=== PATIENT | female | born 1945 | race Caucasian/White ===

== ENCOUNTER → 2018-03-24 16:45 | Outpatient (CLI) | payer OTHER, SELFPAY ==
--- NOTE | 2018-03-24 16:55 | DI.RAD.S_ITS ---
PROCEDURE: XR SHOULDER LT MIN 2V INDICATIONS: mikki pain hx brest cancer TECHNIQUE: 3 views of the shoulder were acquired. COMPARISON: [facility], , CHEST 2 VIEW, 09/16/2016, 16:13. FINDINGS: Bones: No fractures or dislocations. No suspicious bony lesions. Visualized ribs appear intact. 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 Soft tissues: No suspicious soft tissue calcifications. Several surgical clips left axilla. IMPRESSION: No osteolytic or blastic bone lesions seen. No underlying chest wall or lung lesion found. Surgical clips indicating prior left breast carcinoma surgery as noted above. Dictated by: Mo Asher M.D. on 03/25/2018 at 9:04 Approved by: Mo Asher M.D. on 03/25/2018 at 9:05
--- NOTE | 2018-03-24 16:55 | DI.RAD.S_ITS ---
PROCEDURE: XR FEMUR RT MIN 2V INDICATIONS: mikki pain hx brest cancer TECHNIQUE: 4 views of the femur were acquired. COMPARISON: None. FINDINGS: Bones: No fractures or dislocations. No suspicious bony lesions. Soft tissues: No suspicious soft tissue calcifications or masses. IMPRESSION: No osteolytic or blastic bone lesions. Dictated by: Mo Asher M.D. on 03/25/2018 at 9:02 Approved by: Mo Asher M.D. on 03/25/2018 at 9:03
== END ==
PROVIDERS: Family Provider Family Medicine; PCP Family Medicine; Visit Provider Family Medicine
DX: M89.8X9 Other specified disorders of bone, unspecified site (principal); Z85.3 Personal history of malignant neoplasm of breast
CPT/HCPCS: 73030; 73552

== ENCOUNTER → 2018-04-03 10:23 | Outpatient (CLI) | payer OTHER, SELFPAY ==
--- NOTE | 2018-04-03 10:25 | DI.MG.S_ITS ---
UNILATERAL LEFT DIGITAL DIAGNOSTIC MAMMOGRAM 3D/2D POST LUMPECTOMY: 04/03/2018 CLINICAL: Personal history of breast cancer. Comparison is made to exams dated: 07/28/2017 mammogram, 10/01/2016 [facility], 07/31/2016 [facility], [facility]. The tissue of the left breast is heterogeneously dense. This may lower the sensitivity of mammography. There are post operative findings in the left breast. No significant masses, calcifications, or other findings are seen in the breast. There has been no significant interval change. IMPRESSION: NEGATIVE There is no mammographic evidence of malignancy. A 1 year screening mammogram is recommended. This exam was interpreted at Station ID: [id number]. NOTE: For mammograms, a report in lay terms will be sent to the patient. Approximately 15% of breast malignancies will not be visualized mammographically. In the management of a palpable breast mass, a negative mammogram must not discourage biopsy of a clinically suspicious lesion. Electronically Signed By: You grossman/ramin:04/03/2018 11:53:48 copy to: Raji Corona letter sent: Normal Exam ACR BI-RADS Category 1: Negative 3341F
== END ==
PROVIDERS: Family Provider Family Medicine; PCP Family Medicine; Visit Provider Surgery
DX: C50.912 Malignant neoplasm of unspecified site of left female breast (principal); M85.851 Other specified disorders of bone density and structure, right thigh; Z78.0 Asymptomatic menopausal state; Z87.891 Personal history of nicotine dependence; Z90.722 Acquired absence of ovaries, bilateral
CPT/HCPCS: 77065; 77080; G0279

== ENCOUNTER → 2018-05-13 11:15 | Outpatient (CLI) | payer OTHER, SELFPAY ==
[2018-05-13 12:19] LABS: Add Manual Diff / Slide Review NO; Basophils Percent Auto 0.5 % (0-2); Eosinophils Percent Auto 1.3 % (2-4); Hematocrit 44.1 % (36-46); Hemoglobin 14.7 g/dL (12.0-16.0); Lymphocytes Percent Auto 12.6 % (25-40); Mean Corpuscular HGB Conc 33.3 % (30-36); Mean Corpuscular Hemoglobin 28.6 PG (26-34); Mean Corpuscular Volume 85.9 fL (80-100); Monocytes Percent Auto 7.5 % (3-14); Neutrophils Absolute Auto 4100 /uL (3000-5900); Neutrophils Percent Auto 78.1 % (50-75); Platelet Count 112 X10^3/uL (150-400); Red Blood Cell Count 5.14 X10^6/uL (4.0-5.2); White Blood Cell Count 5.3 X10^3/uL (4.5-11.0)
[2018-05-13 12:30] LABS: Alanine Aminotransferase 35 IU/L (9-52); Albumin 4.8 g/dL (3.5-5.0); Albumin Globulin Ratio 1.8 (1.0-2.8); Alkaline Phosphatase 55 U/L (38-126); Aspartate Aminotransferase 31 IU/L (14-36); BUN Creatinine Ratio 21.7 (6-22); Bilirubin Total 0.7 mg/dL (0.2-1.3); Blood Urea Nitrogen 13 mg/dL (7-17); Carbon Dioxide 31 mmol/L (22-32); Chloride 98 mmol/L (98-107); Estimated Glomerular Filt Rate > 60.0 mL/min (>60); Globulin 2.7 g/dL (1.7-4.1); Glucose 120 mg/dL (80-110); HEMOLYSIS < 15 (0-50); Potassium 4.5 mmol/L (3.4-5.1); Sodium 140 mmol/L (137-145); Total Protein 7.5 g/dL (6.3-8.2)
[2018-05-14 15:36] LABS: Cancer Antigen 27.29 27 U/mL (< 38)
== END ==
PROVIDERS: PCP Family Medicine; Visit Provider Nurse Practitioner Gerontology
DX: C50.412 Malignant neoplasm of upper-outer quadrant of left female breast (principal)
CPT/HCPCS: 36415; 80053; 85025; 86300

== ENCOUNTER 2018-06-01 14:29 | Oncology outpatient (ONC) | payer OTHER, SELFPAY ==
[2018-06-01 15:21] VITALS: BP 142/88; PULSE 85; RESP 16; TEMP 36.5; O2SAT 100
--- NOTE | 2018-06-01 16:42 | P.PNONC_ITS ---
PN -Subjective Interval history: Renetta Fung is a very pleasant 72-year-old woman, who initially presented with screen detected left breast invasive lobular carcinoma in 07/2016. Biopsy of left breast 3 o'clock calcification area showed invasive lobular carcinoma classic type, intermediate grade, associated with LCIS, pleomorphic and classic types, with associated comedo necrosis and microcalcifications. The invasive carcinoma was strongly (>95%) ER positive, TX negative, her 2-. She underwent left partial mastectomy/SLN biopsy by Dr. Dumont on 10/01/2016. Pathology showed invasive lobular carcinoma, 12 mm in size, unifocal, with extensive LCIS, with areas of comedo necrosis. Margins were negative. Axillary SLN was negative. Adjuvant chemotherapy was not indicated. She completed adjuvant radiotherapy in mid December 2016. She initially took anastrozole for few weeks but had excessive musculoskeletal pain. She switched to letrozole at that point which she has continued. She says initially letrozole was quite easy year, but more recently, she has had increased pain and has been taking Celebrex at nighttime. She is also switch letrozole to nighttime. She has been using medicinal marijuana for pain. With these measures, the pain has improved but is still uncomfortable. In talking more about her medications, it turns out that she has also been taking raloxifene all along. I informed her that she should stop raloxifene and just continue with letrozole. I anticipate that her pain with further improved by stopping raloxifene. DEXA scan 04/03/2018 shows osteopenia, T-score -0.4 at lumbar spine, -1.8 at left femoral neck, -2.3 at right femoral neck (-1.4,-1.5, -2.4 respectively in 12/2016). - Patient Self-Reported Symptoms SR ears, nose, mouth, throat issues: Ears ringing SR Skin issues: Nail changes SR Genitourinary issues: Sexual difficulties SR Musculoskeletal issues: Joint pain or swelling, Bone pain Home Medications and Allergies Home Medications Medication Instructions Recorded Confirmed Type COENZYME Q10/VITAMIN E (CO-Q-10 1 sgl PO Q DAY #0 03/15/11 03/24/18 History 100mg) MULTIVITAMIN (One Daily 1 tab PO Q DAY #0 03/15/11 03/24/18 History Multivitamin) [VITAMIN E] 180 mg PO Q DAY #0 03/15/11 03/24/18 History [FLAX OIL] 1,000 mg PO QDAY #0 08/21/16 03/24/18 History losartan-hydrochlorothiazide 1 tab PO QDAY #90 tab 08/05/17 03/24/18 Rx potassium chloride [Klor-Con M20] 20 meq PO QDAY #90 tab 08/06/17 03/24/18 Rx celecoxib [Celebrex] 200 mg PO QDAY #0 11/28/17 03/24/18 History amlodipine 5 mg tablet 5 mg PO QDAY #90 tab 03/24/18 Rx omeprazole 20 mg capsule,delayed 20 mg PO QDAY #90 cap 03/24/18 Rx release raloxifene 60 mg tablet 60 mg PO QDAY #90 tab 03/24/18 Rx letrozole 2.5 mg tablet 2.5 mg PO DAILY #90 tab 04/27/18 Rx Allergies Allergy/AdvReac Type Severity Reaction Status Date / Time No Known Drug Allergies Allergy Verified 03/24/18 16:17 Exam Vital signs: Last Vital Signs Temp 97.7 F 06/01/18 15:21 Pulse 85 06/01/18 15:21 Resp 16 06/01/18 15:21 BP 142/88 H 06/01/18 15:21 Pulse Ox 100 06/01/18 15:21 - Constitutional positive no acute distress - Routine HEENT Exam Head: Present: normocephalic, atraumatic Eye: Present: EOMI, PERRL - Routine Neck Exam Present: supple. Absent: lymphadenopathy - Routine Chest/Breast/Axilla Exam Comments: Breast exam deferred today, but no palpable axillary, cervical or supraclavicular adenopathy. - Routine Respiratory Exam Present: Clear to auscultation bilaterally - Routine Cardiovascular Exam Present: RRR - Routine Abdominal Exam Present: soft. Absent: mass Assessment and Plan (1) Breast cancer, left Current visit: No Status: Chronic Resected stage IA left breast invasive lobular carcinoma, remains clinically in ED. Continue letrozole 2.5 mg daily. Unilateral left mammogram on 04/03/2018 is negative. She is due for bilateral screening mammogram later this year. (2) Thrombocytopenia Current visit: Yes Status: Chronic She has had chronic mild thrombocytopenia, with otherwise normal CBC. Platelet count today is 112,000, which is higher than previous values. Dr. Muniz previously did not think bone marrow biopsy was necessary, with which I agree. 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 (3) Osteopenia Current visit: Yes Status: Chronic Osteopenia at bilateral hips. The patient was previously on raloxifene for this , but given that she is now on letrozole, we stopped the raloxifene. I recommend either Prolia every 6 months or Zometa every 6 months, given that she is on AI endocrine therapy. We will obtain insurance authorization and plan to provide either 1 at her next appointment in 3 months. She has a physically active person, walks 5 hr a week, and takes daily supplemental calcium and vitamin-D.
--- NOTE | 2018-06-02 13:47 | ONC.SCHED ---
Prolia-per [place] website it is not on the list that requires prior authorization. [id number]
== END 2018-06-02 12:00 ==
LOC: ONC 14:37
PROVIDERS: Family Provider Family Medicine; PCP Family Medicine; Visit Provider Internal Medicine Hematology & Oncology
DX: C50.812 Malignant neoplasm of overlapping sites of left female breast (principal); Z17.0 Estrogen receptor positive status [ER+]; Z79.811 Long term (current) use of aromatase inhibitors; Z79.810 Long term (current) use of selective estrogen receptor modulators (SERMs); D69.6 Thrombocytopenia, unspecified; M85.88 Other specified disorders of bone density and structure, other site
CPT/HCPCS: 99215

== ENCOUNTER → 2018-07-21 08:56 | Outpatient (CLI) | payer OTHER, SELFPAY ==
[2018-07-21 10:08] LABS: Add Manual Diff / Slide Review NO; Basophils Percent Auto 0.7 % (0-2); Eosinophils Percent Auto 3.5 % (2-4); Hemoglobin 14.2 g/dL (12.0-16.0); Lymphocytes Percent Auto 22.4 % (25-40); Mean Corpuscular Hemoglobin 28.2 PG (26-34); Mean Corpuscular Volume 85.5 fL (80-100); Monocytes Percent Auto 9.8 % (3-14); Neutrophils Absolute Auto 2700 /uL (3000-5900); Neutrophils Percent Auto 63.6 % (50-75); Platelet Count 102 X10^3/uL (150-400); Red Blood Cell Count 5.03 X10^6/uL (4.0-5.2); Red Cell Distribution Width 13.9 % (11.6-14.8); White Blood Cell Count 4.3 X10^3/uL (4.5-11.0)
[2018-07-21 10:46] LABS: Alanine Aminotransferase 30 IU/L (9-52); Albumin 4.7 g/dL (3.5-5.0); Albumin Globulin Ratio 1.6 (1.0-2.8); Alkaline Phosphatase 58 U/L (38-126); Aspartate Aminotransferase 33 IU/L (14-36); BUN Creatinine Ratio 18.6 (6-22); Bilirubin Total 0.6 mg/dL (0.2-1.3); Blood Urea Nitrogen 13 mg/dL (7-17); Calcium 9.6 mg/dL (8.4-10.2); Carbon Dioxide 29 mmol/L (22-32); Chloride 96 mmol/L (98-107); Estimated Glomerular Filt Rate > 60.0 mL/min (>60); Globulin 2.9 g/dL (1.7-4.1); Glucose 102 mg/dL (80-110); HEMOLYSIS < 15 (0-50); Potassium 4.2 mmol/L (3.4-5.1); Sodium 137 mmol/L (137-145); Total Protein 7.6 g/dL (6.3-8.2)
[2018-07-21 10:53] LABS: Cholesterol 227 mg/dL (140-199); HDL Cholesterol 90 mg/dL (40-60); LDL Cholesterol Calculated 125 mg/dL (<100); Triglycerides 62 mg/dL (35-150)
[2018-07-21 11:14] LABS: TSH w/ Reflex to FT4 2.52 uIU/mL (0.47-4.68)
== END ==
PROVIDERS: Family Provider Family Medicine; PCP Family Medicine; Visit Provider Internal Medicine Hematology & Oncology
DX: D69.6 Thrombocytopenia, unspecified (principal); I10 Essential (primary) hypertension
CPT/HCPCS: 36415; 80053; 80061; 84443; 85025

== ENCOUNTER → 2018-08-11 12:17 | Outpatient (CLI) | payer OTHER, SELFPAY ==
--- NOTE | 2018-08-11 | DI.MG.S_ITS ---
BILATERAL DIGITAL SCREENING MAMMOGRAM 3D/2D WITH CAD POST LUMPECTOMY: 08/11/2018 CLINICAL: Routine screening. Personal history of left breast cancer. Family history of breast cancer. Comparison is made to exams dated: 07/28/2017 mammogram, 07/23/2016 mammogram, and 07/20/2015 mammogram - [facility]. The tissue of both breasts is heterogeneously dense. This may lower the sensitivity of mammography. Current study was also evaluated with a Computer Aided Detection (CAD) system. There are benign post operative findings in the left breast. No significant masses, calcifications, or other findings are seen in either breast. There has been no significant interval change. IMPRESSION: There is no mammographic evidence of malignancy. A 1 year screening mammogram is recommended. This exam was interpreted at Station ID: [id number]. NOTE: For mammograms, a report in lay terms will be sent to the patient. Approximately 15% of breast malignancies will not be visualized mammographically. In the management of a palpable breast mass, a negative mammogram must not discourage biopsy of a clinically suspicious lesion. Electronically Signed By: Sebastien ventura/ramin:08/11/2018 20:00:01 copy to: Jessica Aldridge letter sent: Normal Exam ACR BI-RADS Category 2: Benign Finding(s) 3342F
== END ==
PROVIDERS: Family Provider Internal Medicine Hematology & Oncology; PCP Family Medicine; Referring Provider Surgery; Visit Provider Family Medicine
DX: Z12.31 Encounter for screening mammogram for malignant neoplasm of breast (principal); Z85.3 Personal history of malignant neoplasm of breast; Z80.3 Family history of malignant neoplasm of breast
CPT/HCPCS: 77063; 77067

== ENCOUNTER → 2018-09-28 08:39 | Outpatient (CLI) | payer OTHER, SELFPAY ==
--- NOTE | 2018-09-28 08:41 | DI.US.S_ITS ---
PROCEDURE: US THYROID INDICATIONS: Right neck assymmetry/mass TECHNIQUE: Real-time scanning was performed of the thyroid gland, with image documentation. COMPARISON: None. FINDINGS: Right: Thyroid lobe measures 3.9 x 1.1 x 1.2 cm, and is homogeneous in echotexture. Left: Thyroid lobe measures 4.2 x 1.1 x 1.2 cm, and is homogenous in echotexture. Isthmus: 1 mm thick. Nodule number: 1 Location: Left inferior Size: 0.5 x 0.3 x 0.4 cm. Composition: Solid Echogenicity: Hypoechoic Shape: wider than tall. Margins: Smooth Echogenic foci: None Total points: 4 ACR TI-RADS category: Moderately suspicious IMPRESSION: Moderately suspicious subcentimeter left thyroid nodule. Recommend continued followup ultrasound as detailed below. ACR TI-RADS definitions and recommendations: TI-RADS 1 (benign): 0 points. FNA not needed. TI-RADS 2 (not suspicious): 2 points. FNA not needed. TI-RADS 3 (mildly suspicious): 3 points. * FNA if 2.5 cm or larger, follow up if 1.5 cm or larger (at 1, 3, and 5 years). TI-RADS 4 (moderately suspicious): 4-6 points. * FNA if 1.5 cm or larger, follow up if 1 cm or larger (at 1, 2, 3, and 5 years). TI-RADS 5 (highly suspicious): 7 points or more. * FNA if 1 cm or larger, follow up if 0.5 cm or larger (every year for 5 years). Dictated by: Ming YOO Interpreted: Clifton Ascencio MD on 09/28/2018 at 10:24 Approved by: Clifton Ascencio M.D. on 09/28/2018 at 11:18
== END ==
PROVIDERS: PCP Family Medicine; Visit Provider Surgery
DX: E04.1 Nontoxic single thyroid nodule (principal); R22.1 Localized swelling, mass and lump, neck; C50.912 Malignant neoplasm of unspecified site of left female breast
CPT/HCPCS: 76536

== ENCOUNTER → 2019-02-08 14:58 | Outpatient (CLI) | payer OTHER, SELFPAY ==
[2019-02-08 15:08] LABS: Add Manual Diff / Slide Review NO; Basophils Absolute Auto 0 /uL (0-100); Basophils Percent Auto 0.3 % (0-2); Eosinophils Absolute Auto 100 /uL (0-450); Eosinophils Percent Auto 1.8 % (2-4); Lymphocytes Absolute Auto 900 /uL (1100-4500); Lymphocytes Percent Auto 15.6 % (25-40); Mean Corpuscular HGB Conc 33.3 % (30-36); Mean Corpuscular Hemoglobin 28.7 PG (26-34); Monocytes Absolute Auto 500 /uL (0-900); Monocytes Percent Auto 7.9 % (3-14); Neutrophils Absolute Auto 4300 /uL (1500-7000); Neutrophils Percent Auto 74.4 % (50-75); Platelet Count 109 X10^3/uL (150-400); Red Blood Cell Count 4.89 X10^6/uL (4.0-5.2); Red Cell Distribution Width 13.8 % (11.6-14.8); White Blood Cell Count 5.8 X10^3/uL (4.5-11.0)
[2019-02-08 15:27] LABS: Alanine Aminotransferase 24 IU/L (9-52); Albumin 4.6 g/dL (3.5-5.0); Albumin Globulin Ratio 1.8 (1.0-2.8); Alkaline Phosphatase 51 U/L (38-126); Aspartate Aminotransferase 26 IU/L (14-36); BUN Creatinine Ratio 18.6 (6-22); Bilirubin Total 0.8 mg/dL (0.2-1.3); Blood Urea Nitrogen 13 mg/dL (7-17); Calcium 9.7 mg/dL (8.4-10.2); Carbon Dioxide 30 mmol/L (22-32); Chloride 97 mmol/L (98-107); Estimated Glomerular Filt Rate > 60.0 mL/min (>60); Globulin 2.6 g/dL (1.7-4.1); Glucose 92 mg/dL (80-110); HEMOLYSIS < 15 (0-50); Lactate Dehydrogenase 467 U/L (313-618); Potassium 4.4 mmol/L (3.4-5.1); Sodium 135 mmol/L (137-145); Total Protein 7.2 g/dL (6.3-8.2)
[2019-02-10 13:53] LABS: Beta-2-Microglobulin 1.38 mg/L (< 2.52)
[2019-02-10 21:37] LABS: Albumin 4.3 g/dL (3.8-4.8); Alpha 1 Globulin 0.3 g/dL (0.2-0.3); Alpha 2 Globulin 0.6 g/dL (0.5-0.9); Beta 1 Globulin 0.4 g/dL (0.4-0.6); Gamma Globulin 0.8 g/dL (0.8-1.7); Protein, Total 6.7 g/dL (6.1-8.1)
[2019-02-11 10:11] LABS: Cancer Antigen 27.29 25 U/mL (< 38)
== END ==
PROVIDERS: PCP Family Medicine; Visit Provider Internal Medicine Hematology & Oncology
DX: C50.912 Malignant neoplasm of unspecified site of left female breast (principal)
CPT/HCPCS: 36415; 80053; 82232; 83615; 84155; 84165; 85025; 86300

== ENCOUNTER → 2019-06-03 16:11 | Outpatient (CLI) | payer OTHER, SELFPAY ==
--- NOTE | 2019-06-03 16:12 | DI.MG.S_ITS ---
BILATERAL DIGITAL SCREENING MAMMOGRAM 3D/2D WITH CAD: 06/03/2019 CLINICAL: Routine screening. Personal history of left breast cancer. Family history of breast cancer. Comparison is made to exams dated: 08/11/2018 mammogram, 07/28/2017 mammogram, and 07/23/2016 mammogram - [facility]. The tissue of both breasts is heterogeneously dense. This may lower the sensitivity of mammography. Current study was also evaluated with a Computer Aided Detection (CAD) system. There are benign post operative findings in the left breast. No significant masses, calcifications, or other findings are seen in either breast. There has been no significant interval change. IMPRESSION: There is no mammographic evidence of malignancy. A 1 year screening mammogram is recommended. This exam was interpreted at Station ID: [id number]. NOTE: For mammograms, a report in lay terms will be sent to the patient. Approximately 15% of breast malignancies will not be visualized mammographically. In the management of a palpable breast mass, a negative mammogram must not discourage biopsy of a clinically suspicious lesion. Electronically Signed By: Elzbieta crandall/ramin:06/04/2019 12:48:02 copy to: YVON ONEILL letter sent: Normal Exam ACR BI-RADS Category 2: Benign Finding(s) 3342F
== END ==
PROVIDERS: PCP Family Medicine
DX: Z12.31 Encounter for screening mammogram for malignant neoplasm of breast (principal); Z85.3 Personal history of malignant neoplasm of breast; Z80.3 Family history of malignant neoplasm of breast
CPT/HCPCS: 77063; 77067

== ENCOUNTER → 2020-02-21 14:45 | Outpatient (CLI) | payer MEDICARE, OTHER, SELFPAY ==
[2020-02-21 15:52] LABS: Add Manual Diff / Slide Review NO; Basophils Absolute Auto 0 /uL (0-100); Basophils Percent Auto 0.3 % (0-2); Eosinophils Absolute Auto 100 /uL (0-450); Hematocrit 41.6 % (36-46); Hemoglobin 14.4 g/dL (12.0-16.0); Lymphocytes Absolute Auto 1000 /uL (1100-4500); Lymphocytes Percent Auto 15.4 % (25-40); Mean Corpuscular HGB Conc 34.5 % (30-36); Mean Corpuscular Hemoglobin 29.4 PG (26-34); Mean Corpuscular Volume 85.2 fL (80-100); Monocytes Absolute Auto 500 /uL (0-900); Neutrophils Absolute Auto 4900 /uL (1500-7000); Neutrophils Percent Auto 75.3 % (50-75); Platelet Count 93 X10^3/uL (150-400); Red Blood Cell Count 4.88 X10^6/uL (4.0-5.2); Red Cell Distribution Width 14.1 % (11.6-14.8); White Blood Cell Count 6.5 X10^3/uL (4.5-11.0)
[2020-02-21 15:59] LABS: Alanine Aminotransferase 17 IU/L (<35); Albumin 4.5 g/dL (3.5-5.0); Albumin Globulin Ratio 1.7 (1.0-2.8); Alkaline Phosphatase 55 U/L (38-126); Aspartate Aminotransferase 28 IU/L (14-36); BUN Creatinine Ratio 19.7 (6-22); Bilirubin Total 0.5 mg/dL (0.2-1.3); Blood Urea Nitrogen 13 mg/dL (7-17); Calcium 9.6 mg/dL (8.4-10.2); Carbon Dioxide 33 mmol/L (22-32); Chloride 98 mmol/L (98-107); Estimated Glomerular Filt Rate > 60.0 mL/min (>60); Globulin 2.7 g/dL (1.7-4.1); Glucose 117 mg/dL (80-110); HEMOLYSIS < 15 (0-50); Potassium 3.6 mmol/L (3.4-5.1); Sodium 135 mmol/L (137-145); Total Protein 7.2 g/dL (6.3-8.2)
== END ==
PROVIDERS: PCP Family Medicine; Referring Provider Internal Medicine
DX: C50.912 Malignant neoplasm of unspecified site of left female breast (principal)
CPT/HCPCS: 36415; 80053; 85025

== ENCOUNTER → 2020-02-24 15:51 | Outpatient (CLI) | payer MEDICARE, OTHER, SELFPAY ==
--- NOTE | 2020-02-24 15:54 | DI.RAD.S_ITS ---
PROCEDURE: XR SHOULDER LT MIN 2V INDICATIONS: shoulder pain TECHNIQUE: The views of the shoulder were acquired. COMPARISON: [facility], CR, XR SHOULDER LT MIN 2V, 03/24/2018, 16:33. FINDINGS: Bones: No fractures or dislocations. No suspicious bony lesions. Visualized ribs appear intact. Mild joint narrowing with periarticular osteophyte formation of the acromioclavicular and glenohumeral joint. Soft tissues: No suspicious soft tissue calcifications. Left axillary surgical clips. IMPRESSION: Mild acromioclavicular and glenohumeral joint degeneration. If pain persist with conservative management, consider cross-sectional imaging such as CT or MRI. Dictated by: Ming Hilario [facility] Interpreted: Sophia Castano MD on 02/24/2020 at 16:23 Approved by: Sophia Castano MD, PhD on 02/24/2020 at 16:47
== END ==
PROVIDERS: PCP Family Medicine; Referring Provider Family Medicine; Visit Provider Family Medicine
DX: M25.512 Pain in left shoulder (principal); M19.012 Primary osteoarthritis, left shoulder
CPT/HCPCS: 73030

== ENCOUNTER → 2020-02-29 10:44 | Outpatient (CLI) | payer MEDICARE, OTHER, SELFPAY ==
[2020-03-01 13:36] LABS: Fecal Immunochemical Test Negative (Negative)
== END ==
PROVIDERS: Family Provider Family Medicine; PCP Family Medicine; Visit Provider Family Medicine
DX: Z12.11 Encounter for screening for malignant neoplasm of colon (principal)
CPT/HCPCS: 82274

== ENCOUNTER → 2020-03-01 14:26 | Outpatient (CLI) | payer MEDICARE, OTHER, SELFPAY ==
--- NOTE | 2020-03-22 09:00 | P.HOLT.S_ITS ---
Extrusion Line Operator Report Referral & Results Date Patient Seen: 03/01/20 Requesting provider: Raji Corona Indication: Arrhythmia Duration of monitoring (days): 7 Diary information: There were a total of 1 patient diary entry and 1 patient triggered event These events were associated with both sinus rhythm and PVCs (within 45 seconds of marked time) Data: Minimum heart rate was 50 beats per minute at 06:20 on 03/08/2020 Maximum sinus heart rate was 138 beats per minute at 11:10 on 03/06/2020 Maximum overall heart rate was 162 beats per minute at 10:33 on 03/08/2020 during a 9 beat run of SVT There were rare PACs identified Occasional PVCs were identified that made up approximately 2.8% of identified beats including a 22nd run of ventricular trigeminy and a 17.2nd run of ventricular bigeminy There were 3 runs of SVT or atrial tachycardia. The longest was also the fastest with 9 beats at a rate of 162 beats per minute. Impression: This 7 day traffic monitor specialist demonstrates some frequency of PVCs and very limited number of other dysrhythmias as above. Clinical correlation suggested
== END ==
PROVIDERS: Family Provider Family Medicine; PCP Family Medicine; Referring Provider Family Medicine; Visit Provider Family Medicine
DX: I49.9 Cardiac arrhythmia, unspecified (principal)
CPT/HCPCS: 0296T; 0298T

== ENCOUNTER → 2020-03-02 14:44 | Outpatient (CLI) | payer MEDICARE, OTHER, SELFPAY | PROVIDERS: Family Provider Family Medicine; PCP Family Medicine; Referring Provider Internal Medicine; Visit Provider Internal Medicine | DX: M85.851 Other specified disorders of bone density and structure, right thigh (principal); C50.912 Malignant neoplasm of unspecified site of left female breast; Z90.722 Acquired absence of ovaries, bilateral; Z78.0 Asymptomatic menopausal state; Z87.891 Personal history of nicotine dependence | CPT/HCPCS: 77080 ==

== ENCOUNTER 2020-04-17 09:00 | Outpatient (RCR) | payer MEDICARE, OTHER, SELFPAY ==
--- NOTE | 2020-03-06 16:00 | PT.OPPOC ---
Physical, Occupational & Speech Therapy At [facility] Current Diagnoses Pain in left shoulder (03/06/20) Pain in left knee (03/06/20) Pain in right ankle and joints of right foot (03/06/20) Abnormal posture (03/06/20) Weakness (03/06/20) Visit Care Team Role Provider Type Raji Corona MD Attending Provider Physician Family Provider Primary Care Provider Referring Provider Specialty: Family Practice Address: [address] [place] [address], [facility] Email: [email or web address] Plan Of Care PT-OP-T Assessment and Plan Start: 03/06/20 08:13 Freq: Status: Active Protocol: Document 03/06/20 14:29 LIZ (Rec: 03/06/20 16:55 SAK [id number]) Physical Therapy Assessment Rehab Potential Rehabilitation Potential Good Evaluation Complexity Number of Personal Factors/Comorbidities 1-2 Number of Body Systems Impaired 3 Clinical Presentation at Evaluation Evolving Impairments Impairments Pain,Posture,ROM,Strength Goals Four Impairment pain left knee and right achilles 5/10 Long-Term Goal (LTG) Patient to report pain no greater than 2/10 left knee and right knee to allow her to return to all usual activities LTG Duration 05/06/20 Three Impairment postural dysfunction with anterior soft tissue shortening [employer]ishing [employer] Operator Goal (LTG) Patient to demonstrate improvement in postural alignment for left UE function as evidenced by normalization of soft tissue mobility anterior shoulder and chest, elimination of axillary cording left, and ability to touch head to wall with standing postural isometric. LTG Duration 05/06/20 Two Impairment weakness [employer] Operator Goal (LTG) Improve left LE strength to 5/ 5 all muscle groups for improved left UE function LTG Duration 05/06/20 One Impairment pain Long-Term Goal (LTG) Patient to report decrease in pain to no greater than 1-2/10 with all usual activities of her left arm including reaching overhead, reaching out to the side and behind her LTG Duration 05/06/20 Assessment Summary Assessment Patient presents with function -limiting pain left shoulder worsening over the past 2 years with no known mechanism of injury. Patient is highly active with [employer] as well as using UE weights. Will need to educate in safe weight- lifting and form with [employer]. Feel she would benefit from physical therapy for ROM, strengthening, and postural correction ex, with manual therapy techniques and modalities as indicated. Of further concern in her left shoulder is a small area of axillary cording within her anterior left shoulder which has soft tissue cording; patient has history of lumpectomy with radiation on the left. Feel the ther ex and manual therapy for her shoulder pain will be beneficial for this as well. Additionally she c/o left knee pain with her knee occasionally feeling it is going to give way and patient also reports right Achilles pain. Today's evaluation and treatment focused on left shoulder but brief screen of left knee and right Achilles indicate she would benefit from these 2 areas of pain as evidenced by her dysfunctional movement patterns. Physical Therapy Plan Frequency and Duration Frequency of Treatment 1x/Week Duration of Treatment 8 wks Plan of Care Start Date 03/06/20 Plan of Care End Date 05/06/20 Therapeutic Interventions Therapeutic Interventions Home Exercise Program,Manual Therapy,Neuromuscular Re- education,Patient/Caregiver Education,Self-Care/Home Management,Taping,Therapeutic Activities,Therapeutic Exercises Modalities Cold Pack/Ice Massage,Electric Stimulation,Hot Packs, Iontophoresis,Ultrasound Next Visit Focus/Plan Next Note Type Treatment Note Next Visit Plan Review HEP, circumferential UE measurements for lymphedema screen. Assess left knee and right achilles and treat if approved by physician. Plan of Care Dates Plan of Care Start Date 03/06/20 Plan of Care End Date 05/06/20 Electronically Signed by: Rosalind Jj, PT 03/07/20 [id number] Please Sign and Return: I have reviewed this Plan of Care and certify that the skilled therapy services above are required to meet the patient?s needs. Physician Signature Date Printed Name and Credentials Clinical Instructor Signature Printed Name and Credentials
--- NOTE | 2020-03-06 16:00 | PT.OIE ---
Current Diagnoses Pain in left shoulder (03/06/20) Pain in left knee (03/06/20) Pain in right ankle and joints of right foot (03/06/20) Abnormal posture (03/06/20) Weakness (03/06/20) Past Medical History (Last Reviewed 08/11/18 @ 11:10 by Estefani Martines LPN) Abnormal Pap smear of cervix (Resolved 2009) Chicken pox (Resolved) Chronic diarrhea (Resolved) Foot pain (Chronic 2009) Fractures (Resolved) GERD (gastroesophageal reflux disease) (Chronic 2003) HPV (human papilloma virus) infection (Resolved 2011) Hyperlipidemia (Chronic) Hypertension (Chronic 1999) Measles (Resolved) Mumps (Resolved) Osteopenia (Chronic) Tinnitus (Chronic 2012) Past Surgical History (Last Reviewed 08/11/18 @ 11:10 by Estefani Martines LPN) Anesthesia (Resolved) S/P total abdominal hysterectomy and bilateral salpingo-oophorectomy (Resolved 08/2008) Status post hammer toe correction (Resolved 2011) Status post right foot surgery (Resolved 1998) Status post tonsillectomy and adenoidectomy (Resolved ~1956) Status post wrist surgery (Resolved 2001) Visit Care Team Role Provider Type Raji Corona MD Attending Provider Physician Family Provider Primary Care Provider Referring Provider Specialty: [facility] Practice Address: [address] [place] [address] Email: [email or web address] Physical Therapy Initial Evaluation PT-OP-A Visit Information Start: 03/06/20 08:13 Freq: Status: Active Protocol: Document 03/06/20 14:29 SAK (Rec: 03/06/20 14:43 SAK [id number]) Out-Patient Physical Therapy Visit Information Visit Information Visit Type Initial Evaluation Visit Start Time 14:30 Visit Stop Time 15:15 Total Visit Minutes 45 Visit Number 1 Evaluation Information Evaluation Date 03/06/20 Precautions Precautions left lumpectomy 2017 followed by radiation. PT-OP-B Current Condition Start: 03/06/20 08:13 Freq: Status: Active Protocol: Document 03/06/20 14:29 SAK (Rec: 03/06/20 14:43 SAK [id number]) Current Condition History of Current Condition Onset Date 2+ years Current Complaints left shoulder pain, left knee pain, right achilles pain History of Current Condition can't lift left UE overhead or out to side. Left knee gives out at times unpredictably, hasn't fallen. Right achilles pain came on after left knee pain; seems to be getting better. Exercise: weight lifting (5# wts ankles), 5# on wrist + 3# hand weights. No regular routine for stretching or core strengthening. States she has been told her medication (Letrozol) is causing some of her musculoskeletal pain. Pt. is right handed. Prior Treatments and Tests shoulder x-ray: arthritis. No imaging of knee or achilles. Treatment Goals Patient/Caregiver Goals Decrease pain, be able to reach overhead and out/back to side with left UE. No giving way of left knee. Not always able to alternate legs with stairs. PT-OP-C Subjective Start: 03/06/20 08:13 Freq: Status: Active Protocol: Document 03/06/20 14:29 [facility] (Rec: 03/06/20 16:55 [facility] [id number]) Patient Questionnaires Quick Dash- Upper Extremity Quick Dash UE Score 2 OP-PT Pain Assessment Location right achilles Intensity 4 left knee Intensity 5 left shoulder Intensity 3 PT-OP-E Functional Tests Start: 03/06/20 08:13 Freq: Status: Active Protocol: Document 03/06/20 14:29 [facility] (Rec: 03/06/20 16:55 [facility] [id number]) Functional Tests Apley's Scratch Test Action 1- Left anterior shoulder Action 1- Right posterior shoulder Action 2- Left C7 Action 2- Right T2 Action 3- Left T12 Action 3- Right C6 PT-OP-J Posture/Palpation/Skin Start: 03/06/20 08:13 Freq: Status: Active Protocol: Document 03/06/20 14:29 [facility] (Rec: 03/06/20 16:55 [facility] [id number]) Posture Evaluation Position Sitting Head/C-Spine Posture Forward Head T-Spine Posture Increased Kyphosis Shoulder Posture (L) Rounded,(R) Rounded Scapula Posture (L) Protracted,(R) Protracted Arm Posture (L) Internally Rotated,(R) Internally Rotated Comments Posture Comments left shoulder protracted greater than right Palpation Assessment Location left axilla Palpation Details axillary cording left axilla 1 long Skin Assessment Edema Assessment left chest wall Edema Appearance Discolored Comments from radiation Other Assessments Skin Assessment Comments circumferential measurements deferred to next session PT-OP-K Range of Motion Start: 03/06/20 08:13 Freq: Status: Active Protocol: Document 03/06/20 14:29 SAK (Rec: 03/06/20 16:55 [facility] [id number]) Cervical Spine Range of Motion Cervical Spine Active Comments WFL Shoulder Goniometric Range of Motion Shoulder Left Active Shoulder ROM WFL No Testing Position Sitting Flexion 139 Extension 15 Abduction 143 External Rotation at 45 degrees 73 Abduction Internal Rotation Behind Back (text) T12 Right Shoulder ROM WFL Yes Shoulder ROM Limitations Shoulder ROM Limitations Soft Tissue Tightness Elbow/Forearm Range of Motion Elbow/Forearm ann Elbow/Forearm ROM WFL Yes PT-OP-L Special Tests Start: 03/06/20 08:13 Freq: Status: Active Protocol: Document 03/06/20 14:29 [facility] (Rec: 03/06/20 16:55 [facility] [id number]) Special Tests Shoulder Special Tests Elevation Impingement Test Results negative Drop Arm Rotator Cuff Test Results negative Belly Press Test Results negative PT-OP-M Strength Start: 03/06/20 08:13 Freq: Status: Active Protocol: Document 03/06/20 14:29 [facility] (Rec: 03/06/20 16:55 [facility] [id number]) Shoulder Strength Shoulder Manual Muscle Testing Left Flexion 4- Good- Extension 4+ Good+ Abduction (C5) 4- Good- External Rotation 4 Good Internal Rotation 4- Good- Right Flexion 4 Good Extension 4+ Good+ Abduction (C5) 4 Good External Rotation 4 Good Internal Rotation 4- Good- Elbow/Forearm Strength Elbow and Forearm Manual Muscle Testing ann Flexion (C6) 5 Normal Extension (C7) 5 Normal PT-OP-Q Treatments Start: 03/06/20 08:13 Freq: Status: Active Protocol: Document 03/06/20 14:29 [facility] (Rec: 03/06/20 16:55 [facility] [id number]) Self-Care/Home Management Treatment Education Patient Education Home Exercise Program Other Education Written handout reviewed with patient, patient demonstrated good understanding. PT-OP-T Assessment and Plan Start: 03/06/20 08:13 Freq: Status: Active Protocol: Document 03/06/20 14:29 [facility] (Rec: 06/29/20 16:55 SAK [id number]) Physical Therapy Assessment Rehab Potential Rehabilitation Potential Good Evaluation Complexity Number of Personal Factors/Comorbidities 1-2 Number of Body Systems Impaired 3 Clinical Presentation at Evaluation Evolving Impairments Impairments Pain,Posture,ROM,Strength Goals Four Impairment pain left knee and right achilles 5/10 Care Home Goal (LTG) Patient to report pain no greater than 2/10 left knee and right knee to allow her to return to all usual activities LTG Duration 05/06/20 Three Impairment postural dysfunction with anterior soft tissue shortening Flask Maker Goal (LTG) Patient to demonstrate improvement in postural alignment for left UE function as evidenced by normalization of soft tissue mobility anterior shoulder and chest, elimination of axillary cording left, and ability to touch head to wall with standing postural isometric. LTG Duration 05/06/20 Two Impairment weakness Care Home Goal (LTG) Improve left LE strength to 5/ 5 all muscle groups for improved left UE function LTG Duration 05/06/20 One Impairment pain Care Home Goal (LTG) Patient to report decrease in pain to no greater than 1-2/10 with all usual activities of her left arm including reaching overhead, reaching out to the side and behind her LTG Duration 05/06/20 Assessment Summary Assessment Patient presents with function -limiting pain left shoulder worsening over the past 2 years with no known mechanism of injury. Patient is highly active with Willam as well as using UE weights. Will need to educate in safe weight- lifting and form with Willam. Feel she would benefit from physical therapy for ROM, strengthening, and postural correction ex, with manual therapy techniques and modalities as indicated. Of further concern in her left shoulder is a small area of axillary cording within her anterior left shoulder which has soft tissue cording; patient has history of lumpectomy with radiation on the left. Feel the ther ex and manual therapy for her shoulder pain will be beneficial for this as well. Additionally she c/o left knee pain with her knee occasionally feeling it is going to give way and patient also reports right Achilles pain. Today's evaluation and treatment focused on left shoulder but brief screen of left knee and right Achilles indicate she would benefit from these 2 areas of pain as evidenced by her dysfunctional movement patterns. Physical Therapy Plan Frequency and Duration Frequency of Treatment 1x/Week Duration of Treatment 8 wks Plan of Care Start Date 03/06/20 Plan of Care End Date 05/06/20 Therapeutic Interventions Therapeutic Interventions Home Exercise Program,Manual Therapy,Neuromuscular Re- education,Patient/Caregiver Education,Self-Care/Home Management,Taping,Therapeutic Activities,Therapeutic Exercises Modalities Cold Pack/Ice Massage,Electric Stimulation,Hot Packs, Iontophoresis,Ultrasound Next Visit Focus/Plan Next Note Type Treatment Note Next Visit Plan Review HEP, circumferential UE measurements for lymphedema screen. Assess left knee and right achilles and treat if approved by physician.
--- NOTE | 2020-03-06 16:00 | PT.OPPOC ---
Physical, Occupational & Speech Therapy At [facility] Current Diagnoses Pain in left shoulder (03/06/20) Pain in left knee (03/06/20) Pain in right ankle and joints of right foot (03/06/20) Abnormal posture (03/06/20) Weakness (03/06/20) Visit Care Team Role Provider Type Raji Corona MD Attending Provider Physician Family Provider Primary Care Provider Referring Provider Specialty: Family Practice Address: [address] [place] [address], [facility] Email: [email or web address] Plan Of Care PT-OP-T Assessment and Plan Start: 03/06/20 08:13 Freq: Status: Active Protocol: Document 03/06/20 14:29 [facility] (Rec: 03/06/20 16:55 SAK [id number]) Physical Therapy Assessment Rehab Potential Rehabilitation Potential Good Evaluation Complexity Number of Personal Factors/Comorbidities 1-2 Number of Body Systems Impaired 3 Clinical Presentation at Evaluation Evolving Impairments Impairments Pain,Posture,ROM,Strength Goals Four Impairment pain left knee and right achilles 5/10 Intermediate Goal (LTG) Patient to report pain no greater than 2/10 left knee and right knee to allow her to return to all usual activities LTG Duration 05/06/20 Three Impairment postural dysfunction with anterior soft tissue shortening Manager Convention Goal (LTG) Patient to demonstrate improvement in postural alignment for left UE function as evidenced by normalization of soft tissue mobility anterior shoulder and chest, elimination of axillary cording left, and ability to touch head to wall with standing postural isometric. LTG Duration 05/06/20 Two Impairment weakness Manager Convention Goal (LTG) Improve left LE strength to 5/ 5 all muscle groups for improved left UE function LTG Duration 05/06/20 One Impairment pain Intermediate Goal (LTG) Patient to report decrease in pain to no greater than 1-2/10 with all usual activities of her left arm including reaching overhead, reaching out to the side and behind her LTG Duration 05/06/20 Assessment Summary Assessment Patient presents with function -limiting pain left shoulder worsening over the past 2 years with no known mechanism of injury. Patient is highly active with Willam as well as using UE weights. Will need to educate in safe weight- lifting and form with Willam. Feel she would benefit from physical therapy for ROM, strengthening, and postural correction ex, with manual therapy techniques and modalities as indicated. Of further concern in her left shoulder is a small area of axillary cording within her anterior left shoulder which has soft tissue cording; patient has history of lumpectomy with radiation on the left. Feel the ther ex and manual therapy for her shoulder pain will be beneficial for this as well. Additionally she c/o left knee pain with her knee occasionally feeling it is going to give way and patient also reports right Achilles pain. Today's evaluation and treatment focused on left shoulder but brief screen of left knee and right Achilles indicate she would benefit from these 2 areas of pain as evidenced by her dysfunctional movement patterns. Physical Therapy Plan Frequency and Duration Frequency of Treatment 1x/Week Duration of Treatment 8 wks Plan of Care Start Date 03/06/20 Plan of Care End Date 05/06/20 Therapeutic Interventions Therapeutic Interventions Home Exercise Program,Manual Therapy,Neuromuscular Re- education,Patient/Caregiver Education,Self-Care/Home Management,Taping,Therapeutic Activities,Therapeutic Exercises Modalities Cold Pack/Ice Massage,Electric Stimulation,Hot Packs, Iontophoresis,Ultrasound Next Visit Focus/Plan Next Note Type Treatment Note Next Visit Plan Review HEP, circumferential UE measurements for lymphedema screen. Assess left knee and right achilles and treat if approved by physician. Plan of Care Dates Plan of Care Start Date 03/06/20 Plan of Care End Date 05/06/20 Electronically Signed by: Rosalind Jj, PT 03/07/20 [id number] Please Sign and Return: I have reviewed this Plan of Care and certify that the skilled therapy services above are required to meet the patient?s needs. Physician Signature Date Printed Name and Credentials Clinical Instructor Signature Printed Name and Credentials
--- NOTE | 2020-03-13 16:34 | PT.OTN ---
Current Diagnoses Pain in left shoulder (03/13/20) Pain in left knee (03/13/20) Pain in right ankle and joints of right foot (03/13/20) Abnormal posture (03/13/20) Weakness (03/13/20) Physical Therapy Treatment Note PT-OP-A Visit Information Start: 03/06/20 08:13 Freq: Status: Active Protocol: Document 03/13/20 09:02 SAK (Rec: 03/13/20 09:22 [facility] [id number]) Out-Patient Physical Therapy Visit Information Visit Information Visit Type Treatment Note Visit Start Time 09:00 Visit Stop Time 09:45 Total Visit Minutes 45 Visit Number 2 Evaluation Information Evaluation Date 03/06/20 Precautions Precautions left lumpectomy 2017 followed by radiation. PT-OP-B Current Condition Start: 03/06/20 08:13 Freq: Status: Active Protocol: Document 03/13/20 09:02 SAK (Rec: 03/13/20 09:22 [facility] [id number]) Current Condition Treatment Goals Patient/Caregiver Goals Decrease pain, be able to reach overhead and out/back to side with left UE. No giving way of left knee. Not always able to alternate legs with stairs. PT-OP-C Subjective Start: 03/06/20 08:13 Freq: Status: Active Protocol: Document 03/06/20 14:29 [facility] (Rec: 03/06/20 16:55 [facility] [id number]) Patient Questionnaires Quick Dash- Upper Extremity Quick Dash UE Score 2 OP-PT Pain Assessment Location right achilles Intensity 4 left knee Intensity 5 left shoulder Intensity 3 PT-OP-E Functional Tests Start: 03/06/20 08:13 Freq: Status: Active Protocol: Document 03/06/20 14:29 SAK (Rec: 03/06/20 16:55 [facility] [id number]) Functional Tests Apley's Scratch Test Action 1- Left anterior shoulder Action 1- Right posterior shoulder Action 2- Left C7 Action 2- Right T2 Action 3- Left T12 Action 3- Right C6 PT-OP-J Posture/Palpation/Skin Start: 03/06/20 08:13 Freq: Status: Active Protocol: Document 03/06/20 14:29 SAK (Rec: 03/06/20 16:55 [facility] [id number]) Posture Evaluation Position Sitting Head/C-Spine Posture Forward Head T-Spine Posture Increased Kyphosis Shoulder Posture (L) Rounded,(R) Rounded Scapula Posture (L) Protracted,(R) Protracted Arm Posture (L) Internally Rotated,(R) Internally Rotated Comments Posture Comments left shoulder protracted greater than right Palpation Assessment Location left axilla Palpation Details axillary cording left axilla 1 long Skin Assessment Edema Assessment left chest wall Edema Appearance Discolored Comments from radiation Other Assessments Skin Assessment Comments circumferential measurements deferred to next session PT-OP-K Range of Motion Start: 03/06/20 08:13 Freq: Status: Active Protocol: Document 03/06/20 14:29 [facility] (Rec: 03/06/20 16:55 [facility] [id number]) Cervical Spine Range of Motion Cervical Spine Active Comments WFL Shoulder Goniometric Range of Motion Shoulder Left Active Shoulder ROM WFL No Testing Position Sitting Flexion 139 Extension 15 Abduction 143 External Rotation at 45 degrees 73 Abduction Internal Rotation Behind Back (text) T12 Right Shoulder ROM WFL Yes Shoulder ROM Limitations Shoulder ROM Limitations Soft Tissue Tightness Elbow/Forearm Range of Motion Elbow/Forearm ann Elbow/Forearm ROM WFL Yes PT-OP-L Special Tests Start: 03/06/20 08:13 Freq: Status: Active Protocol: Document 03/06/20 14:29 [facility] (Rec: 03/06/20 16:55 [facility] [id number]) Special Tests Shoulder Special Tests Elevation Impingement Test Results negative Drop Arm Rotator Cuff Test Results negative Belly Press Test Results negative PT-OP-M Strength Start: 03/06/20 08:13 Freq: Status: Active Protocol: Document 03/06/20 14:29 [facility] (Rec: 03/06/20 16:55 [facility] [id number]) Shoulder Strength Shoulder Manual Muscle Testing Left Flexion 4- Good- Extension 4+ Good+ Abduction (C5) 4- Good- External Rotation 4 Good Internal Rotation 4- Good- Right Flexion 4 Good Extension 4+ Good+ Abduction (C5) 4 Good External Rotation 4 Good Internal Rotation 4- Good- Elbow/Forearm Strength Elbow and Forearm Manual Muscle Testing ann Flexion (C6) 5 Normal Extension (C7) 5 Normal PT-OP-Q Treatments Start: 03/06/20 08:13 Freq: Status: Active Protocol: Document 03/13/20 09:02 SAK (Rec: 03/13/20 09:22 SAK [id number]) Cardio Equipment Recumbent Stepper (Sci-Fit) Duration (Minutes) 6 Resistance 1 Seat Position 9 Therapeutic Exercises Supine Exercises posture press Reps/Minutes 10x pec stretch Reps/Minutes 2x30 shoulder flex with wand Reps/Minutes 10x with end range stretch after 10th Sidelying Exercises reach and roll Reps/Minutes 5x each side Comments manual facilitation of motion Sitting Exercises Shoulder ER Comments next session UT stretch Comments next session pulleys for shoulder flexion Equipment Used pulleys, ball at mid thoracic spine Reps/Minutes 10x Standing Exercises HC stretch Equipment Used MARIE Reps/Minutes 2x30 rows, shoulder ext Equipment Used L2 TB Reps/Minutes 10x Other Exercises sit to stand Reps/Minutes 5x Comments emphasis on neutral alignment LE's Self-Care/Home Management Treatment Education Patient Education Home Exercise Program,Posture, Safety Other Education reviewed patients UE weight lifting exercises; corrections made to form with patient demonstrating good understanding. PT-OP-T Assessment and Plan Start: 03/06/20 08:13 Freq: Status: Active Protocol: Document 03/13/20 09:02 [facility] (Rec: 03/13/20 09:22 [facility] [id number]) Physical Therapy Assessment Goals Four Impairment pain left knee and right achilles 5/10 Senior Care Goal (LTG) Patient to report pain no greater than 2/10 left knee and right knee to allow her to return to all usual activities LTG Duration 05/06/20 Three Impairment postural dysfunction with anterior soft tissue shortening Senior Care Goal (LTG) Patient to demonstrate improvement in postural alignment for left UE function as evidenced by normalization of soft tissue mobility anterior shoulder and chest, elimination of axillary cording left, and ability to touch head to wall with standing postural isometric. LTG Duration 05/06/20 Two Impairment weakness Senior Care Goal (LTG) Improve left LE strength to 5/ 5 all muscle groups for improved left UE function LTG Duration 05/06/20 One Impairment pain Exhibit Artist Goal (LTG) Patient to report decrease in pain to no greater than 1-2/10 with all usual activities of her left arm including reaching overhead, reaching out to the side and behind her LTG Duration 05/06/20 Assessment Summary Assessment Patient tolerated ther ex well , with verbal and manual cues required. Feel patient may benefit form gentle thoracic mobilization into extension due decreased mobility with excess kyphosis. Circumferential measurements reveal 1 cm or less difference between UE's, subclinical for lymphedema, subaxillary cording still present left. Physical Therapy Plan Frequency and Duration Frequency of Treatment 1x/Week Duration of Treatment 8 wks Plan of Care Start Date 03/06/20 Plan of Care End Date 05/06/20 Therapeutic Interventions Therapeutic Interventions Home Exercise Program,Manual Therapy,Neuromuscular Re- education,Patient/Caregiver Education,Self-Care/Home Management,Taping,Therapeutic Activities,Therapeutic Exercises Modalities Cold Pack/Ice Massage,Electric Stimulation,Hot Packs, Iontophoresis,Ultrasound Next Visit Focus/Plan Next Note Type Treatment Note Next Visit Plan Continue progression of ther ex. Manual techniques for axillary cording.
--- NOTE | 2020-03-20 09:57 | PT.OTN ---
Current Diagnoses Pain in left shoulder (03/20/20) Pain in left knee (03/20/20) Pain in right ankle and joints of right foot (03/20/20) Abnormal posture (03/20/20) Weakness (03/20/20) Physical Therapy Treatment Note PT-OP-A Visit Information Start: 03/06/20 08:13 Freq: Status: Active Protocol: Document 03/20/20 09:05 SAK (Rec: 03/20/20 09:55 [facility] [id number]) Out-Patient Physical Therapy Visit Information Visit Information Visit Type Treatment Note Visit Start Time 09:00 Visit Stop Time 09:43 Total Visit Minutes 43 Visit Number 3 Evaluation Information Evaluation Date 03/06/20 Precautions Precautions left lumpectomy 2017 followed by radiation. PT-OP-B Current Condition Start: 03/06/20 08:13 Freq: Status: Active Protocol: Document 03/20/20 09:05 SAK (Rec: 03/20/20 09:55 [facility] [id number]) Current Condition History of Current Condition Onset Date 2+ years Current Complaints left shoulder pain, left knee pain, right achilles pain History of Current Condition can't lift left UE overhead or out to side. Left knee gives out at times unpredictably, hasn't fallen. Right achilles pain came on after left knee pain; seems to be getting better. Exercise: weight lifting (5# wts ankles), 5# on wrist + 3# hand weights. No regular routine for stretching or core strengthening. States she has been told her medication (Letrozol) is causing some of her musculoskeletal pain. Pt. is right handed. Prior Treatments and Tests shoulder x-ray: arthritis. No imaging of knee or achilles. Treatment Goals Patient/Caregiver Goals Decrease pain, be able to reach overhead and out/back to side with left UE. No giving way of left knee. Not always able to alternate legs with stairs. PT-OP-C Subjective Start: 03/06/20 08:13 Freq: Status: Active Protocol: Document 03/20/20 09:05 SAK (Rec: 03/20/20 09:55 SAK [id number]) OP-PT Subjective Patient Comments Patient Comments Reports shoulder feeling better, knee a little improved , achilles about the same. After walking a few miles reports she feels pain. PT-OP-E Functional Tests Start: 03/06/20 08:13 Freq: Status: Active Protocol: Document 03/06/20 14:29 [facility] (Rec: 03/06/20 16:55 [facility] [id number]) Functional Tests Apley's Scratch Test Action 1- Left anterior shoulder Action 1- Right posterior shoulder Action 2- Left C7 Action 2- Right T2 Action 3- Left T12 Action 3- Right C6 PT-OP-J Posture/Palpation/Skin Start: 03/06/20 08:13 Freq: Status: Active Protocol: Document 03/06/20 14:29 [facility] (Rec: 03/06/20 16:55 [facility] [id number]) Posture Evaluation Position Sitting Head/C-Spine Posture Forward Head T-Spine Posture Increased Kyphosis Shoulder Posture (L) Rounded,(R) Rounded Scapula Posture (L) Protracted,(R) Protracted Arm Posture (L) Internally Rotated,(R) Internally Rotated Comments Posture Comments left shoulder protracted greater than right Palpation Assessment Location left axilla Palpation Details axillary cording left axilla 1 long Skin Assessment Edema Assessment left chest wall Edema Appearance Discolored Comments from radiation Other Assessments Skin Assessment Comments circumferential measurements deferred to next session PT-OP-K Range of Motion Start: 03/06/20 08:13 Freq: Status: Active Protocol: Document 03/06/20 14:29 [facility] (Rec: 03/06/20 16:55 [facility] [id number]) Cervical Spine Range of Motion Cervical Spine Active Comments WFL Shoulder Goniometric Range of Motion Shoulder Left Active Shoulder ROM WFL No Testing Position Sitting Flexion 139 Extension 15 Abduction 143 External Rotation at 45 degrees 73 Abduction Internal Rotation Behind Back (text) T12 Right Shoulder ROM WFL Yes Shoulder ROM Limitations Shoulder ROM Limitations Soft Tissue Tightness Elbow/Forearm Range of Motion Elbow/Forearm ann Elbow/Forearm ROM WFL Yes PT-OP-L Special Tests Start: 03/06/20 08:13 Freq: Status: Active Protocol: Document 03/06/20 14:29 [facility] (Rec: 03/06/20 16:55 [facility] [id number]) Special Tests Shoulder Special Tests Elevation Impingement Test Results negative Drop Arm Rotator Cuff Test Results negative Belly Press Test Results negative PT-OP-M Strength Start: 03/06/20 08:13 Freq: Status: Active Protocol: Document 03/06/20 14:29 [facility] (Rec: 03/06/20 16:55 [facility] [id number]) Shoulder Strength Shoulder Manual Muscle Testing Left Flexion 4- Good- Extension 4+ Good+ Abduction (C5) 4- Good- External Rotation 4 Good Internal Rotation 4- Good- Right Flexion 4 Good Extension 4+ Good+ Abduction (C5) 4 Good External Rotation 4 Good Internal Rotation 4- Good- Elbow/Forearm Strength Elbow and Forearm Manual Muscle Testing ann Flexion (C6) 5 Normal Extension (C7) 5 Normal PT-OP-Q Treatments Start: 03/06/20 08:13 Freq: Status: Active Protocol: Document 03/20/20 09:05 [facility] (Rec: 03/20/20 09:55 [facility] [id number]) Cardio Equipment Recumbent Stepper (Sci-Fit) Duration (Minutes) 8 Resistance 1 Seat Position 11 Gym Equipment Shuttle Recovery Bilateral Heel Raises Resistance 37 Shuttle Recovery Platform Stable Reps/Time 10x1 Unilateral Squats Resistance 37 Shuttle Recovery Platform Stable Reps/Time 10x2 Bilateral Squats Resistance 75 Shuttle Recovery Platform Stable Reps/Time 10x2 Shuttle Balance 1 Details chains red: A/P, side bal and wt shift Reps/Duration 7' Comments Min to mod UE support with A/P , mod+ to max UE support with side to side Therapeutic Exercises Sitting Exercises UT stretch Comments next session Standing Exercises HC stretch Equipment Used MARIE, lunge stretch Reps/Minutes 2x30 Manual Therapy Treatment Taping 2 Body Location right achilles Treatment Focus pain reduciton Type of Tape kinesiotape Skin Inspection intact Comments 2 I strips: one across bottom of foot, along achilles and up calf with ankle df, one at arch 1 Body Location left knee Treatment Focus pain reduction Type of Tape kinesiotape Skin Inspection intact Comments 2 Y strips Self-Care/Home Management Treatment Education Other Education ice after activity PT-OP-T Assessment and Plan Start: 03/06/20 08:13 Freq: Status: Active Protocol: Document 03/20/20 09:05 [facility] (Rec: 03/20/20 09:55 [facility] [id number]) Physical Therapy Assessment Goals Four Impairment pain left knee and right achilles 5/10 Group Home Goal (LTG) Patient to report pain no greater than 2/10 left knee and right knee to allow her to return to all usual activities LTG Duration 05/06/20 Three Impairment postural dysfunction with anterior soft tissue shortening Group Home Goal (LTG) Patient to demonstrate improvement in postural alignment for left UE function as evidenced by normalization of soft tissue mobility anterior shoulder and chest, elimination of axillary cording left, and ability to touch head to wall with standing postural isometric. LTG Duration 05/06/20 Two Impairment weakness Pit Clerk Goal (LTG) Improve left LE strength to 5/ 5 all muscle groups for improved left UE function LTG Duration 05/06/20 One Impairment pain Group Home Goal (LTG) Patient to report decrease in pain to no greater than 1-2/10 with all usual activities of her left arm including reaching overhead, reaching out to the side and behind her LTG Duration 05/06/20 Assessment Summary Assessment Good improvement in shoulder pain. Trial kinesiotape to left knee and right achilles. Physical Therapy Plan Frequency and Duration Frequency of Treatment 1x/Week Duration of Treatment 8 wks Plan of Care Start Date 03/06/20 Plan of Care End Date 05/06/20 Therapeutic Interventions Therapeutic Interventions Home Exercise Program,Manual Therapy,Neuromuscular Re- education,Patient/Caregiver Education,Self-Care/Home Management,Taping,Therapeutic Activities,Therapeutic Exercises Modalities Cold Pack/Ice Massage,Electric Stimulation,Hot Packs, Iontophoresis,Ultrasound Next Visit Focus/Plan Next Note Type Treatment Note Next Visit Plan Continue progression of ther ex. Manual techniques for axillary cording. Prone shoulder exercises.
--- NOTE | 2020-04-03 17:19 | PT.OTN ---
Current Diagnoses Pain in left shoulder (04/03/20) Pain in left knee (04/03/20) Pain in right ankle and joints of right foot (04/03/20) Abnormal posture (04/03/20) Weakness (04/03/20) Physical Therapy Treatment Note PT-OP-A Visit Information Start: 03/06/20 08:13 Freq: Status: Active Protocol: Document 04/03/20 09:47 SAK (Rec: 04/03/20 10:35 [facility] [id number]) Out-Patient Physical Therapy Visit Information Visit Information Visit Type Treatment Note Visit Start Time 09:00 Visit Stop Time 09:43 Total Visit Minutes 43 Visit Number 4 Evaluation Information Evaluation Date 03/06/20 Precautions Precautions left lumpectomy 2017 followed by radiation. PT-OP-B Current Condition Start: 03/06/20 08:13 Freq: Status: Active Protocol: Document 03/20/20 09:05 SAK (Rec: 03/20/20 09:55 [facility] [id number]) Current Condition History of Current Condition Onset Date 2+ years Current Complaints left shoulder pain, left knee pain, right achilles pain History of Current Condition can't lift left UE overhead or out to side. Left knee gives out at times unpredictably, hasn't fallen. Right achilles pain came on after left knee pain; seems to be getting better. Exercise: weight lifting (5# wts ankles), 5# on wrist + 3# hand weights. No regular routine for stretching or core strengthening. States she has been told her medication (Letrozol) is causing some of her musculoskeletal pain. Pt. is right handed. Prior Treatments and Tests shoulder x-ray: arthritis. No imaging of knee or achilles. Treatment Goals Patient/Caregiver Goals Decrease pain, be able to reach overhead and out/back to side with left UE. No giving way of left knee. Not always able to alternate legs with stairs. PT-OP-C Subjective Start: 03/06/20 08:13 Freq: Status: Active Protocol: Document 04/03/20 09:47 SAK (Rec: 04/03/20 10:35 [facility] [id number]) OP-PT Subjective Patient Comments Patient Comments States she feels knee better, paying better attention to LE alignment especially with sit to stand as noted by PT. Shoulder better, achilles same though feels kinesiotape was helpful. Has not worn any compression stockings or brace to ankle as recommended by PT . PT-OP-E Functional Tests Start: 03/06/20 08:13 Freq: Status: Active Protocol: Document 03/06/20 14:29 [facility] (Rec: 03/06/20 16:55 [facility] [id number]) Functional Tests Apley's Scratch Test Action 1- Left anterior shoulder Action 1- Right posterior shoulder Action 2- Left C7 Action 2- Right T2 Action 3- Left T12 Action 3- Right C6 PT-OP-J Posture/Palpation/Skin Start: 03/06/20 08:13 Freq: Status: Active Protocol: Document 03/06/20 14:29 [facility] (Rec: 03/06/20 16:55 [facility] [id number]) Posture Evaluation Position Sitting Head/C-Spine Posture Forward Head T-Spine Posture Increased Kyphosis Shoulder Posture (L) Rounded,(R) Rounded Scapula Posture (L) Protracted,(R) Protracted Arm Posture (L) Internally Rotated,(R) Internally Rotated Comments Posture Comments left shoulder protracted greater than right Palpation Assessment Location left axilla Palpation Details axillary cording left axilla 1 long Skin Assessment Edema Assessment left chest wall Edema Appearance Discolored Comments from radiation Other Assessments Skin Assessment Comments circumferential measurements deferred to next session PT-OP-K Range of Motion Start: 03/06/20 08:13 Freq: Status: Active Protocol: Document 03/06/20 14:29 [facility] (Rec: 03/06/20 16:55 [facility] [id number]) Cervical Spine Range of Motion Cervical Spine Active Comments WFL Shoulder Goniometric Range of Motion Shoulder Left Active Shoulder ROM WFL No Testing Position Sitting Flexion 139 Extension 15 Abduction 143 External Rotation at 45 degrees 73 Abduction Internal Rotation Behind Back (text) T12 Right Shoulder ROM WFL Yes Shoulder ROM Limitations Shoulder ROM Limitations Soft Tissue Tightness Elbow/Forearm Range of Motion Elbow/Forearm ann Elbow/Forearm ROM WFL Yes PT-OP-L Special Tests Start: 03/06/20 08:13 Freq: Status: Active Protocol: Document 03/06/20 14:29 [facility] (Rec: 03/06/20 16:55 [facility] [id number]) Special Tests Shoulder Special Tests Elevation Impingement Test Results negative Drop Arm Rotator Cuff Test Results negative Belly Press Test Results negative PT-OP-M Strength Start: 06/29/20 08:13 Freq: Status: Active Protocol: Document 03/06/20 14:29 [facility] (Rec: 03/06/20 16:55 [facility] [id number]) Shoulder Strength Shoulder Manual Muscle Testing Left Flexion 4- Good- Extension 4+ Good+ Abduction (C5) 4- Good- External Rotation 4 Good Internal Rotation 4- Good- Right Flexion 4 Good Extension 4+ Good+ Abduction (C5) 4 Good External Rotation 4 Good Internal Rotation 4- Good- Elbow/Forearm Strength Elbow and Forearm Manual Muscle Testing ann Flexion (C6) 5 Normal Extension (C7) 5 Normal PT-OP-Q Treatments Start: 03/06/20 08:13 Freq: Status: Active Protocol: Document 04/03/20 09:47 [facility] (Rec: 04/03/20 10:35 [facility] [id number]) Cardio Equipment Recumbent Stepper (Sci-Fit) Duration (Minutes) 10 Resistance 2 Seat Position 11 Therapeutic Exercises Standing Exercises squats Resistance yellow theraband just superior to knees Reps/Minutes 10x Comments verbal and manual cues for technique sidestepping Equipment Used yellow Reps/Minutes 2 min HC stretch Equipment Used MARIE, lunge stretch Reps/Minutes 2x30 Manual Therapy Treatment Taping 2 Body Location right achilles Treatment Focus pain reduciton Type of Tape kinesiotape Skin Inspection intact Comments 2 I strips: one across bottom of foot, along achilles and up calf with ankle df, one at arch 2 fan strips for edema reduction Self-Care/Home Management Treatment Education Other Education ice after activity PT-OP-R Modalities Start: 03/06/20 08:13 Freq: Status: Active Protocol: Document 04/03/20 09:47 [facility] (Rec: 04/03/20 17:16 [facility] [id number]) Hot Pack/Cold Pack Treatment Cold Pack Location right foot/an kle Patient Position Hooklying Treatment Duration (minutes) 10 Comments cryocuff Ultrasound Therapy Treatment right achilles, retromalleolar Treatment Duration (minutes) 8 Patient Position Prone Coupling Medium Ultrasound Gel Applicator Size (cm2) 10 Frequency Setting (mHz) 3 Mode Setting Pulsed Duty Cycle 50% PT-OP-T Assessment and Plan Start: 03/06/20 08:13 Freq: Status: Active Protocol: Document 04/03/20 09:47 [facility] (Rec: 04/03/20 10:35 [facility] [id number]) Physical Therapy Assessment Goals Four Impairment pain left knee and right achilles 5/10 Program Manager Rn Goal (LTG) Patient to report pain no greater than 2/10 left knee and right knee to allow her to return to all usual activities LTG Duration 05/06/20 Three Impairment postural dysfunction with anterior soft tissue shortening Program Manager Rn Goal (LTG) Patient to demonstrate improvement in postural alignment for left UE function as evidenced by normalization of soft tissue mobility anterior shoulder and chest, elimination of axillary cording left, and ability to touch head to wall with standing postural isometric. LTG Duration 05/06/20 Two Impairment weakness Program Manager Rn Goal (LTG) Improve left LE strength to 5/ 5 all muscle groups for improved left UE function LTG Duration 05/06/20 One Impairment pain Program Manager Rn Goal (LTG) Patient to report decrease in pain to no greater than 1-2/10 with all usual activities of her left arm including reaching overhead, reaching out to the side and behind her LTG Duration 05/06/20 Assessment Summary Assessment right achilles pain most limiting factor at this time. Patient not icing or wearing compression as recommended. Trial ultrasound and cryocuff today as well as addition of fan strips to kinesiotape technique for edema reduction. Physical Therapy Plan Frequency and Duration Frequency of Treatment 1x/Week Duration of Treatment 8 wks Plan of Care Start Date 03/06/20 Plan of Care End Date 05/06/20 Therapeutic Interventions Therapeutic Interventions Home Exercise Program,Manual Therapy,Neuromuscular Re- education,Patient/Caregiver Education,Self-Care/Home Management,Taping,Therapeutic Activities,Therapeutic Exercises Modalities Cold Pack/Ice Massage,Electric Stimulation,Hot Packs, Iontophoresis,Ultrasound Next Visit Focus/Plan Next Note Type Treatment Note Next Visit Plan Assess response to ultrasound, cryocuff, and modified kinesiotape technique. Continue progression of ther ex. Manual techniques for axillary cording. Prone shoulder exercises.
--- NOTE | 2020-04-11 09:45 | PT.OTN ---
Current Diagnoses Pain in left shoulder (04/11/20) Pain in left knee (04/11/20) Pain in right ankle and joints of right foot (04/11/20) Abnormal posture (04/11/20) Weakness (04/11/20) Physical Therapy Treatment Note PT-OP-A Visit Information Start: 03/06/20 08:13 Freq: Status: Active Protocol: Document 04/11/20 09:06 SP (Rec: 04/11/20 09:50 SP [id number]) Out-Patient Physical Therapy Visit Information Visit Information Visit Type Treatment Note Visit Start Time 09:06 Visit Stop Time 09:45 Total Visit Minutes 39 Visit Number 5 Number of DROSOPHERE OPERATOR Visits 1 Precautions Precautions left lumpectomy 2017 followed by radiation. PT-OP-B Current Condition Start: 03/06/20 08:13 Freq: Status: Active Protocol: Document 03/20/20 09:05 SAK (Rec: 03/20/20 09:55 SAK [id number]) Current Condition History of Current Condition Onset Date 2+ years Current Complaints left shoulder pain, left knee pain, right achilles pain History of Current Condition can't lift left UE overhead or out to side. Left knee gives out at times unpredictably, hasn't fallen. Right achilles pain came on after left knee pain; seems to be getting better. Exercise: weight lifting (5# wts ankles), 5# on wrist + 3# hand weights. No regular routine for stretching or core strengthening. States she has been told her medication (Letrozol) is causing some of her musculoskeletal pain. Pt. is right handed. Prior Treatments and Tests shoulder x-ray: arthritis. No imaging of knee or achilles. Treatment Goals Patient/Caregiver Goals Decrease pain, be able to reach overhead and out/back to side with left UE. No giving way of left knee. Not always able to alternate legs with stairs. PT-OP-C Subjective Start: 03/06/20 08:13 Freq: Status: Active Protocol: Document 04/11/20 09:06 SP (Rec: 04/11/20 09:50 SP [id number]) OP-PT Subjective Patient Comments Patient Comments States she feels R achilles knee, shld less painful getting better, taping helped and still holding up. I careful coming down stair and holding on getting in shower bc doesn't trust L leg, weak. PT-OP-E Functional Tests Start: 03/06/20 08:13 Freq: Status: Active Protocol: Document 03/06/20 14:29 [facility] (Rec: 03/06/20 16:55 [facility] [id number]) Functional Tests Apley's Scratch Test Action 1- Left anterior shoulder Action 1- Right posterior shoulder Action 2- Left C7 Action 2- Right T2 Action 3- Left T12 Action 3- Right C6 PT-OP-J Posture/Palpation/Skin Start: 03/06/20 08:13 Freq: Status: Active Protocol: Document 03/06/20 14:29 [facility] (Rec: 03/06/20 16:55 [facility] [id number]) Posture Evaluation Position Sitting Head/C-Spine Posture Forward Head T-Spine Posture Increased Kyphosis Shoulder Posture (L) Rounded,(R) Rounded Scapula Posture (L) Protracted,(R) Protracted Arm Posture (L) Internally Rotated,(R) Internally Rotated Comments Posture Comments left shoulder protracted greater than right Palpation Assessment Location left axilla Palpation Details axillary cording left axilla 1 long Skin Assessment Edema Assessment left chest wall Edema Appearance Discolored Comments from radiation Other Assessments Skin Assessment Comments circumferential measurements deferred to next session PT-OP-K Range of Motion Start: 03/06/20 08:13 Freq: Status: Active Protocol: Document 03/06/20 14:29 [facility] (Rec: 03/06/20 16:55 [facility] [id number]) Cervical Spine Range of Motion Cervical Spine Active Comments WFL Shoulder Goniometric Range of Motion Shoulder Left Active Shoulder ROM WFL No Testing Position Sitting Flexion 139 Extension 15 Abduction 143 External Rotation at 45 degrees 73 Abduction Internal Rotation Behind Back (text) T12 Right Shoulder ROM WFL Yes Shoulder ROM Limitations Shoulder ROM Limitations Soft Tissue Tightness Elbow/Forearm Range of Motion Elbow/Forearm ann Elbow/Forearm ROM WFL Yes PT-OP-L Special Tests Start: 03/06/20 08:13 Freq: Status: Active Protocol: Document 03/06/20 14:29 [facility] (Rec: 03/06/20 16:55 [facility] [id number]) Special Tests Shoulder Special Tests Elevation Impingement Test Results negative Drop Arm Rotator Cuff Test Results negative Belly Press Test Results negative PT-OP-M Strength Start: 06/29/20 08:13 Freq: Status: Active Protocol: Document 03/06/20 14:29 SAK (Rec: 03/06/20 16:55 [facility] [id number]) Shoulder Strength Shoulder Manual Muscle Testing Left Flexion 4- Good- Extension 4+ Good+ Abduction (C5) 4- Good- External Rotation 4 Good Internal Rotation 4- Good- Right Flexion 4 Good Extension 4+ Good+ Abduction (C5) 4 Good External Rotation 4 Good Internal Rotation 4- Good- Elbow/Forearm Strength Elbow and Forearm Manual Muscle Testing ann Flexion (C6) 5 Normal Extension (C7) 5 Normal PT-OP-Q Treatments Start: 03/06/20 08:13 Freq: Status: Active Protocol: Document 04/11/20 09:06 SP (Rec: 04/11/20 09:50 SP [id number]) Cardio Equipment Recumbent Elliptical (Warm Health) Duration (Minutes) 6 Resistance 3 Seat Position 7 Other cued R hip ER decrease valgus cave Therapeutic Exercises Prone Exercises T Prone Exercise Name scap retraction approx 45 deg ABD Reps/Minutes 5 sec hold x5 Comments forehead on towel scap retraction, arm lift, cs ext lift Reps/Minutes 5sec hold x5 each Comments cued gentle retraction, nose toward Standing Exercises squats Resistance green theraband just superior to knees Reps/Minutes 10x Comments verbal and manual cues for technique, slow controlled descent Manual Therapy Treatment Manual Traction achilles Details STMs Body Position Hooklying Reps/Duration 1 min Comments manual and instruction self active over racquetball muscle belly/musculotendon junct roll and pin with DF/PF AROM/ pinch fingers fig 4 position distal attachment with DF/PF small ROM Taping 2 Body Location right achilles Treatment Focus pain reduciton Type of Tape kinesiotape Skin Inspection intact Comments 2 I strips: one across bottom of foot, along achilles and up calf with ankle df, one at arch PT-OP-R Modalities Start: 03/06/20 08:13 Freq: Status: Active Protocol: Document 04/03/20 09:47 SAK (Rec: 04/03/20 17:16 SAK [id number]) Hot Pack/Cold Pack Treatment Cold Pack Location right foot/an kle Patient Position Hooklying Treatment Duration (minutes) 10 Comments cryocuff Ultrasound Therapy Treatment right achilles, retromalleolar Treatment Duration (minutes) 8 Patient Position Prone Coupling Medium Ultrasound Gel Applicator Size (cm2) 10 Frequency Setting (mHz) 3 Mode Setting Pulsed Duty Cycle 50% PT-OP-T Assessment and Plan Start: 03/06/20 08:13 Freq: Status: Active Protocol: Document 04/11/20 09:06 SP (Rec: 04/11/20 09:50 SP [id number]) Physical Therapy Assessment Goals Four Impairment pain left knee and right achilles 5/10 Temporary Help Agency Referral Clerk Goal (LTG) Patient to report pain no greater than 2/10 left knee and right knee to allow her to return to all usual activities LTG Duration 05/06/20 Three Impairment postural dysfunction with anterior soft tissue shortening Halfway Goal (LTG) Patient to demonstrate improvement in postural alignment for left UE function as evidenced by normalization of soft tissue mobility anterior shoulder and chest, elimination of axillary cording left, and ability to touch head to wall with standing postural isometric. LTG Duration 05/06/20 Two Impairment weakness Temporary Help Agency Referral Clerk Goal (LTG) Improve left LE strength to 5/ 5 all muscle groups for improved left UE function LTG Duration 05/06/20 One Impairment pain Halfway Goal (LTG) Patient to report decrease in pain to no greater than 1-2/10 with all usual activities of her left arm including reaching overhead, reaching out to the side and behind her LTG Duration 05/06/20 Assessment Summary Assessment Pt tolerated ther ex and manual with instruction on self STM s to achilles, added to HEP. Initaiated prone shld scap retraction/ext with good tolerance to improve scap stabilization and posture. Physical Therapy Plan Frequency and Duration Frequency of Treatment 1x/Week Duration of Treatment 8 wks Plan of Care Start Date 03/06/20 Plan of Care End Date 05/06/20 Therapeutic Interventions Therapeutic Interventions Home Exercise Program,Manual Therapy,Neuromuscular Re- education,Patient/Caregiver Education,Self-Care/Home Management,Taping,Therapeutic Activities,Therapeutic Exercises Modalities Cold Pack/Ice Massage,Electric Stimulation,Hot Packs, Iontophoresis,Ultrasound Next Visit Focus/Plan Next Note Type Treatment Note Next Visit Plan Assess K taping achilles, self STMS with ball and prone shld ext added last tx. Continue progression of ther ex. Manual techniques for axillary cording. Prone shoulder exercises.
--- NOTE | 2020-04-17 17:05 | PT.OTN ---
Current Diagnoses Pain in left shoulder (04/17/20) Pain in left knee (04/17/20) Pain in right ankle and joints of right foot (04/17/20) Abnormal posture (04/17/20) Weakness (04/17/20) Physical Therapy Treatment Note PT-OP-A Visit Information Start: 03/06/20 08:13 Freq: Status: Active Protocol: Document 04/17/20 09:04 SAK (Rec: 04/17/20 09:45 SAK [id number]) Out-Patient Physical Therapy Visit Information Visit Information Visit Type Treatment Note Visit Start Time 09:01 Visit Stop Time 09:45 Total Visit Minutes 44 Visit Number 6 Precautions Precautions left lumpectomy 2017 followed by radiation. PT-OP-B Current Condition Start: 03/06/20 08:13 Freq: Status: Active Protocol: Document 03/20/20 09:05 SAK (Rec: 03/20/20 09:55 SAK [id number]) Current Condition History of Current Condition Onset Date 2+ years Current Complaints left shoulder pain, left knee pain, right achilles pain History of Current Condition can't lift left UE overhead or out to side. Left knee gives out at times unpredictably, hasn't fallen. Right achilles pain came on after left knee pain; seems to be getting better. Exercise: weight lifting (5# wts ankles), 5# on wrist + 3# hand weights. No regular routine for stretching or core strengthening. States she has been told her medication (Letrozol) is causing some of her musculoskeletal pain. Pt. is right handed. Prior Treatments and Tests shoulder x-ray: arthritis. No imaging of knee or achilles. Treatment Goals Patient/Caregiver Goals Decrease pain, be able to reach overhead and out/back to side with left UE. No giving way of left knee. Not always able to alternate legs with stairs. PT-OP-C Subjective Start: 03/06/20 08:13 Freq: Status: Active Protocol: Document 04/17/20 09:04 SAK (Rec: 04/17/20 09:45 SAK [id number]) OP-PT Subjective Patient Comments Patient Comments Reports left knee and shoulder some improved, bought some kinesiotape. Needs instruction. States today is last PT treatment due to traveling. Open to kinesiotape to knee as well. PT-OP-E Functional Tests Start: 03/06/20 08:13 Freq: Status: Active Protocol: Document 03/06/20 14:29 [facility] (Rec: 03/06/20 16:55 [facility] [id number]) Functional Tests Apley's Scratch Test Action 1- Left anterior shoulder Action 1- Right posterior shoulder Action 2- Left C7 Action 2- Right T2 Action 3- Left T12 Action 3- Right C6 PT-OP-J Posture/Palpation/Skin Start: 03/06/20 08:13 Freq: Status: Active Protocol: Document 03/06/20 14:29 [facility] (Rec: 03/06/20 16:55 [facility] [id number]) Posture Evaluation Position Sitting Head/C-Spine Posture Forward Head T-Spine Posture Increased Kyphosis Shoulder Posture (L) Rounded,(R) Rounded Scapula Posture (L) Protracted,(R) Protracted Arm Posture (L) Internally Rotated,(R) Internally Rotated Comments Posture Comments left shoulder protracted greater than right Palpation Assessment Location left axilla Palpation Details axillary cording left axilla 1 long Skin Assessment Edema Assessment left chest wall Edema Appearance Discolored Comments from radiation Other Assessments Skin Assessment Comments circumferential measurements deferred to next session PT-OP-K Range of Motion Start: 03/06/20 08:13 Freq: Status: Active Protocol: Document 03/06/20 14:29 [facility] (Rec: 03/06/20 16:55 [facility] [id number]) Cervical Spine Range of Motion Cervical Spine Active Comments WFL Shoulder Goniometric Range of Motion Shoulder Left Active Shoulder ROM WFL No Testing Position Sitting Flexion 139 Extension 15 Abduction 143 External Rotation at 45 degrees 73 Abduction Internal Rotation Behind Back (text) T12 Right Shoulder ROM WFL Yes Shoulder ROM Limitations Shoulder ROM Limitations Soft Tissue Tightness Elbow/Forearm Range of Motion Elbow/Forearm ann Elbow/Forearm ROM WFL Yes PT-OP-L Special Tests Start: 03/06/20 08:13 Freq: Status: Active Protocol: Document 03/06/20 14:29 [facility] (Rec: 03/06/20 16:55 [facility] [id number]) Special Tests Shoulder Special Tests Elevation Impingement Test Results negative Drop Arm Rotator Cuff Test Results negative Belly Press Test Results negative PT-OP-M Strength Start: 03/06/20 08:13 Freq: Status: Active Protocol: Document 03/06/20 14:29 [facility] (Rec: 03/06/20 16:55 [facility] [id number]) Shoulder Strength Shoulder Manual Muscle Testing Left Flexion 4- Good- Extension 4+ Good+ Abduction (C5) 4- Good- External Rotation 4 Good Internal Rotation 4- Good- Right Flexion 4 Good Extension 4+ Good+ Abduction (C5) 4 Good External Rotation 4 Good Internal Rotation 4- Good- Elbow/Forearm Strength Elbow and Forearm Manual Muscle Testing ann Flexion (C6) 5 Normal Extension (C7) 5 Normal PT-OP-Q Treatments Start: 03/06/20 08:13 Freq: Status: Active Protocol: Document 04/17/20 09:04 [facility] (Rec: 04/17/20 09:45 [facility] [id number]) Cardio Equipment Recumbent Stepper (Sci-Fit) Duration (Minutes) 10 Resistance 4 Seat Position 11 Therapeutic Exercises Prone Exercises T Prone Exercise Name scap retraction approx 45 deg ABD Reps/Minutes 5 sec hold x5 Comments forehead on towel scap retraction, arm lift, cs ext lift Reps/Minutes 5sec hold x5 each Comments cued gentle retraction, nose toward Manual Therapy Treatment Manual Traction achilles Details STMs Body Position Hooklying Reps/Duration 1 min Comments manual and instruction self active over racquetball muscle belly/musculotendon junct roll and pin with DF/PF AROM/ pinch fingers fig 4 position distal attachment with DF/PF small ROM Taping 2 Body Location right achilles Treatment Focus pain reduciton Type of Tape kinesiotape Skin Inspection intact Comments 2 I strips: one across bottom of foot, along achilles and up calf with ankle df, one at arch 1 Body Location left knee Treatment Focus pain reduction Type of Tape kinesiotape Skin Inspection intact PT-OP-R Modalities Start: 03/06/20 08:13 Freq: Status: Active Protocol: Document 04/03/20 09:47 [facility] (Rec: 04/03/20 17:16 [facility] [id number]) Hot Pack/Cold Pack Treatment Cold Pack Location right foot/an kle Patient Position Hooklying Treatment Duration (minutes) 10 Comments cryocuff Ultrasound Therapy Treatment right achilles, retromalleolar Treatment Duration (minutes) 8 Patient Position Prone Coupling Medium Ultrasound Gel Applicator Size (cm2) 10 Frequency Setting (mHz) 3 Mode Setting Pulsed Duty Cycle 50% PT-OP-T Assessment and Plan Start: 03/06/20 08:13 Freq: Status: Active Protocol: Document 04/17/20 09:04 [facility] (Rec: 04/17/20 09:45 [facility] [id number]) Physical Therapy Assessment Goals Four Impairment pain left knee and right achilles 5/10 Installation Drafter Goal (LTG) Patient to report pain no greater than 2/10 left knee and right knee to allow her to return to all usual activities 04/17/20: goal progress, pain variable LTG Duration 05/06/20 Three Impairment postural dysfunction with anterior soft tissue shortening Installation Drafter Goal (LTG) Patient to demonstrate improvement in postural alignment for left UE function as evidenced by normalization of soft tissue mobility anterior shoulder and chest, elimination of axillary cording left, and ability to touch head to wall with standing postural isometric. 04/17/20: good progress all of above but not fully achieved LTG Duration 05/06/20 Two Impairment weakness Installation Drafter Goal (LTG) Improve left LE strength to 5/ 5 all muscle groups for improved left UE function 04/17/20: good goal progress, 4 +/5 LTG Duration 05/06/20 One Impairment pain Installation Drafter Goal (LTG) Patient to report decrease in pain to no greater than 1-2/10 with all usual activities of her left arm including reaching overhead, reaching out to the side and behind her 04/17/20: achieved for overhead but not out to side or behind . Goal progress has been made LTG Duration 05/06/20 Physical Therapy Plan Therapeutic Interventions Therapeutic Interventions Home Exercise Program,Manual Therapy,Neuromuscular Re- education,Patient/Caregiver Education,Self-Care/Home Management,Taping,Therapeutic Activities,Therapeutic Exercises Modalities Cold Pack/Ice Massage,Electric Stimulation,Hot Packs, Iontophoresis,Ultrasound Discharge Physical Therapy Discharge Reasons Patient Request Discharge Comments Patient leaving for 8-9 months , has requested discharge from PT at this time. May benefit from further PT in the future .
== END 2020-10-26 08:59 ==
LOC: PHYS 09:00
PROVIDERS: Family Provider Family Medicine; PCP Family Medicine; Referring Provider Family Medicine; Visit Provider Family Medicine
DX: M25.512 Pain in left shoulder (principal); M25.562 Pain in left knee; M25.571 Pain in right ankle and joints of right foot; R29.3 Abnormal posture; R53.1 Weakness
CPT/HCPCS: 97035; 97110; 97140; 97162; 97535

== ENCOUNTER → 2020-04-18 14:49 | Outpatient (CLI) | payer MEDICARE, OTHER, SELFPAY ==
--- NOTE | 2020-04-18 14:51 | DI.US.S_ITS ---
PROCEDURE: US THYROID INDICATIONS: THYROID NODULE TECHNIQUE: Real-time scanning was performed of the thyroid gland, with image documentation. COMPARISON: [facility], [place], US THYROID, 09/28/2018, 9:05. FINDINGS: Right: Thyroid lobe measures 3.6 x 1.0 x 1.3 cm, and is homogeneous in echotexture. Left: Thyroid lobe measures 3.9 x 1.1 x 1.3 cm, and is homogenous in echotexture. 5 mm left inferior thyroid nodule is unchanged. Isthmus: 1.0 mm thick. IMPRESSION: No change in 5 mm left inferior thyroid nodule. Given the small size and stability, no follow-up is warranted. ACR TI-RADS definitions and recommendations: TI-RADS 1 (benign): 0 points. FNA not needed. TI-RADS 2 (not suspicious): 2 points. FNA not needed. TI-RADS 3 (mildly suspicious): 3 points. * FNA if 2.5 cm or larger, follow up if 1.5 cm or larger (at 1, 3, and 5 years). TI-RADS 4 (moderately suspicious): 4-6 points. * FNA if 1.5 cm or larger, follow up if 1 cm or larger (at 1, 2, 3, and 5 years). TI-RADS 5 (highly suspicious): 7 points or more. * FNA if 1 cm or larger, follow up if 0.5 cm or larger (every year for 5 years). Dictated by: Ming BAUTISTA Interpreted: Lizet Ayers MD on 04/18/2020 at 16:37 Approved by: Lizet Ayers M.D. on 04/18/2020 at 18:04
== END ==
PROVIDERS: Family Provider Family Medicine; PCP Family Medicine; Referring Provider Family Medicine; Visit Provider Family Medicine
DX: E04.1 Nontoxic single thyroid nodule (principal)
CPT/HCPCS: 76536

== ENCOUNTER → 2021-04-05 10:43 | Outpatient (CLI) | payer MEDICARE, OTHER, SELFPAY ==
--- NOTE | 2021-04-05 | DI.RAD.S_ITS ---
PROCEDURE: FL BARIUM SWALLOW W SPEECH INDICATIONS: DYSKINESIA OF ESOPHAGUS COMPARISON: None. TECHNIQUE: Examination was conducted in conjunction with speech pathology per standard protocol. In the lateral projection, filming was performed of the patient swallowing. AP projection filming may also be performed with patient swallowing. COMPARISON: FINDINGS: Function: The oral preparatory phase appears normal, with proper containment. The subsequent oral propulsive phase, pharyngeal phase, and esophageal phase of swallowing also appear normal with all proffered substances. No laryngotracheal penetration or aspiration. No pathologic vallecular pooling. Esophageal dysmotility and delayed clearance is noted. Morphology: No cricopharyngeal bar is identified. No cervical esophageal webs. No Zenker's diverticulum. No strictures. IMPRESSION: Esophageal dysmotility. No aspiration Dictated by: Sorin Awan M.D. on 04/06/2021 at 12:53 Approved by: Sorin Awan M.D. on 04/06/2021 at 12:53
--- NOTE | 2021-04-05 10:46 | DI.RAD.S_ITS ---
PROCEDURE: XR CHEST 2V INDICATIONS: cough difficulty with swallowing TECHNIQUE: 2 views of the chest were acquired. COMPARISON: [facility], , CHEST 2 VIEW, 09/16/2016, 16:13. FINDINGS: Surgical changes and devices: Left breast surgical clips. Lungs and pleura: Lungs are clear. No pleural effusions or pneumothorax. Mediastinum: Mediastinal contours are normal. Heart size is normal. Bones and chest wall: No suspicious bony abnormalities. Soft tissues appear unremarkable. IMPRESSION: No acute cardiopulmonary disease. Dictated by: Ming Hilario [facility] Interpreted: Mo Asher MD on 04/05/2021 at 12:22 Transcribed by: ORLIN on 04/05/2021 at 12:22 Approved by: Mo Asher M.D. on 04/05/2021 at 14:46
[2021-04-05 12:20] LABS: Add Manual Diff / Slide Review NO; Basophils Absolute Auto 0 /uL (0-100); Basophils Percent Auto 0.4 % (0-2); Eosinophils Absolute Auto 100 /uL (0-450); Eosinophils Percent Auto 1.4 % (2-4); Hematocrit 44.3 % (36-46); Hemoglobin 14.8 g/dL (12.0-16.0); Lymphocytes Absolute Auto 900 /uL (1100-4500); Lymphocytes Percent Auto 16.6 % (25-40); Mean Corpuscular HGB Conc 33.5 % (30-36); Mean Corpuscular Hemoglobin 28.9 PG (26-34); Mean Corpuscular Volume 86.2 fL (80-100); Monocytes Absolute Auto 500 /uL (0-900); Monocytes Percent Auto 8.3 % (3-14); Neutrophils Absolute Auto 4200 /uL (1500-7000); Neutrophils Percent Auto 73.3 % (50-75); Platelet Count 112 X10^3/uL (150-400); Red Blood Cell Count 5.14 X10^6/uL (4.0-5.2); Red Cell Distribution Width 13.6 % (11.6-14.8); White Blood Cell Count 5.7 X10^3/uL (4.5-11.0)
[2021-04-05 12:37] LABS: Alanine Aminotransferase 22 IU/L (<35); Albumin 4.5 g/dL (3.5-5.0); Albumin Globulin Ratio 1.5 (1.0-2.8); Alkaline Phosphatase 55 U/L (38-126); Aspartate Aminotransferase 35 IU/L (14-36); BUN Creatinine Ratio 22.9 (6-22); Bilirubin Total 0.7 mg/dL (0.2-1.3); Blood Urea Nitrogen 16 mg/dL (7-17); Calcium 9.6 mg/dL (8.4-10.2); Carbon Dioxide 28 mmol/L (22-32); Chloride 94 mmol/L (98-107); Estimated Glomerular Filt Rate > 60.0 mL/min (>60); Globulin 3.1 g/dL (1.7-4.1); Glucose 131 mg/dL (80-110); HEMOLYSIS < 15 (0-50); Potassium 3.9 mmol/L (3.4-5.1); Sodium 131 mmol/L (137-145); Total Protein 7.6 g/dL (6.3-8.2)
--- NOTE | 2021-04-05 16:09 | ST.SWALLOW ---
Visit Care Team Role Provider Type Elizabet Harris Referring Provider Non-Staff Specialty: Massage Therapy Address: [address], [place], [address] Email: Raji Corona MD Family Provider Physician Primary Care Provider Specialty: Family Practice Address: [address] [place] [address], [id number] Email: [email or web address] BRITT Diane Attending Provider Speech Therapist Specialty: Speech Therapy Address: Phone: Fax: Email: ST Modified Barium Swallow Study CLINICAL ACCOUNT SPECIALIST Modified Barium Swallow Study Start: 04/05/21 15:44 Freq: Status: Active Protocol: Document 04/05/21 15:45 MG (Rec: 04/05/21 16:08 MG [id number]) Modified Barium Swallow Study Total Time Visit Start Time 11:45 Visit Stop Time 12:10 Total Visit Minutes 25 Visit Information Visit Number 1 Setting Setting Outpatient Care Patient Information Identification Type Name Patient History Pt is a 75 year old female who presents with diskinesia of the esophagus and reports of globus when eating/drinking. Intake interview conducted by CLINICAL ACCOUNT SPECIALIST revealed the following: the pt has a habit of eating/ drinking fast. Pt has not had the feeling of globus in a long time and when she does, it is fleeting. 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 Subjective Observations Pt entered the room and was agreeable to the study. Informal OME revealed adequate range of motion and strength of the articulators. Patient Positioning Position View Lat-A/P Imaging Lateral View Textures Administered Trials Presented Thin Liquid via Spoon,Thin Liquid via Cup,Scobey Liquid via Spoon,Pudding Thick Liquid via Spoon,Regular Textures Oral Phase Source: MBSIMP (TM) (C) Bolus Specific Scoring Grid Lip Closure WFL Tongue Control During Bolus Hold WFL Bolus Prep/Mastication WFL Bolus Transport/Lingual Motion WFL A/P Lingual Propulsion Delay No Oral Residue WFL Residue Clearing WFL Nasal Regurgitation No Additional Oral Phase Observations No anterior spillage was noted throughout the evaluation. Pt maintained control of the bolus in the oral cavity prior to the initiation of the swallow. Tongue control appeared WFL. Mastication of regular texture appears unremarkable. Pt reports no issues with mastication of solids at this time. Pharyngeal Phase Source: MBSIMP (TM) (C) Bolus Specific Scoring Grid Delayed Initiation of Pharyngeal Swallow No Soft Palate Elevation WFL Tongue Base Strength/Range of Motion WFL Residue Along the Tongue Base Yes Clearance of Residue Along Tongue Base WFL Laryngeal Elevation WFL Anterior Hyoid Movement Minimal Impairment Epiglottic Range of Motion WFL Vallecular Residue Yes Clearance of Vallecular Residue WFL Laryngeal Vestibular Closure WFL Pharyngeal Stripping Wave WFL Pharyngeal Contraction WFL Posterior Pharyngeal Wall Residue Yes Clearance of Posterior Pharyngeal Wall WFL Residue Upper Esophageal Sphincter Opening WFL Residue in the Pyriform Sinuses No Esophageal Clearance Upright Position WFL Pharyngoesophageal Backflow Observed No Additional Pharyngeal Phase Observations Mild residue is noted at base of tongue and pharyngeal wall. Pt clears WFL after second swallow. Base of tongue appears to maintain bolus in the oral cavity prior to the initiation of the swallow. Epiglottis moves WFL for airway protection. Mild reduction of anterior hyoid movement is noted, but does not appear to reduce the safety of the swallow. Throughout all trials, no aspiration nor penetration is noted. A/P View Textures Administered Trials Presented Thin Liquid via Cup A/P View Observations Pharyngeal Contraction WFL Vocal Fold Function Good Esophageal Function Slowed Clearing,Poor Motility Esophageal Clearance Upright Position Mild Impairment Additional Observations Motility is impaired due to diagnosis. Pt has difficulty clearing from esophagus to Clinical Impressions Dysphagia Type No dysphagia noted at this time Findings Pt appears to have oral and pharyngeal movement that is WFL at this time. Throughout all trials, no aspiration nor penetration is noted. Pt successfully clears pharyngeal cavity with a double swallow. CLINICAL ACCOUNT SPECIALIST went over safe swallowing strategies and encouraged the pt to chew food more and take smaller bites/sips to avoid the globus sensation. Patient Appropriate for Therapy No: No dysphagia noted at this time Recommendations Diet Liquids Order Thin Diet Order Regular Medication Recommendation As Tolerated Aspiration Precautions Recommended Precautions Upright at 90 Degrees,Small Bites/Sips,Effortful Swallow Additional Precautions Eat/drink at a slow rate Treatment Plan Compensatory Strategies Recommendations Sitting Upright (90 deg),Small Bites and Sips Additional Compensatory Strategies Eat/drink at a slow rate Recommended Placement Recommendation After Discharge Home
== END ==
PROVIDERS: Internal Medicine; Family Provider Family Medicine; PCP Family Medicine; Referring Provider Massage Therapist; Visit Provider Massage Therapist
DX: K22.4 Dyskinesia of esophagus (principal); R05 Cough; C50.912 Malignant neoplasm of unspecified site of left female breast
CPT/HCPCS: 36415; 71046; 74220; 74230; 80053; 85025; 92611

== ENCOUNTER → 2022-02-14 12:24 | Outpatient (CLI) | payer MEDICARE, OTHER, SELFPAY ==
[2022-02-14 13:40] LABS: Add Manual Diff / Slide Review NO; Basophils Absolute Auto 0 /uL (0-100); Basophils Percent Auto 0.5 % (0-2); Eosinophils Absolute Auto 100 /uL (0-450); Eosinophils Percent Auto 1.9 % (2-4); Hematocrit 42.2 % (36-46); Hemoglobin 14.1 g/dL (12.0-16.0); Lymphocytes Absolute Auto 1100 /uL (1100-4500); Mean Corpuscular HGB Conc 33.4 % (30-36); Mean Corpuscular Volume 86.8 fL (80-100); Monocytes Absolute Auto 500 /uL (0-900); Neutrophils Absolute Auto 4700 /uL (1500-7000); Neutrophils Percent Auto 72.6 % (50-75); Platelet Count 133 X10^3/uL (150-400); Red Blood Cell Count 4.86 X10^6/uL (4.0-5.2); Red Cell Distribution Width 13.7 % (11.6-14.8); White Blood Cell Count 6.4 X10^3/uL (4.5-11.0)
[2022-02-14 14:00] LABS: Alanine Aminotransferase 15 IU/L (<35); Albumin 4.4 g/dL (3.5-5.0); Albumin Globulin Ratio 1.6 (1.0-2.8); Alkaline Phosphatase 49 U/L (38-126); Aspartate Aminotransferase 24 IU/L (14-36); BUN Creatinine Ratio 18.6 (6-22); Bilirubin Total 0.6 mg/dL (0.2-1.3); Blood Urea Nitrogen 13 mg/dL (7-17); Calcium 9.2 mg/dL (8.4-10.2); Carbon Dioxide 30 mmol/L (22-32); Chloride 97 mmol/L (98-107); Estimated Glomerular Filt Rate > 60 mL/min (>60); Globulin 2.7 g/dL (1.7-4.1); Glucose 92 mg/dL (80-110); HEMOLYSIS < 15 (0-50); Sodium 134 mmol/L (137-145); Total Protein 7.1 g/dL (6.3-8.2)
[2022-02-14 14:29] LABS: Thyroid Stimulating Hormone 0.965 uIU/mL (0.47-4.68)
== END ==
PROVIDERS: Family Provider Family Medicine; PCP Family Medicine; Referring Provider Family Medicine; Visit Provider Family Medicine
DX: I10 Essential (primary) hypertension (principal); D69.6 Thrombocytopenia, unspecified; E87.1 Hypo-osmolality and hyponatremia
CPT/HCPCS: 36415; 80053; 84443; 85025

== ENCOUNTER 2024-05-04 09:40 | Day surgery (SDC) | payer MEDICARE, OTHER, SELFPAY ==
[2024-05-04] MEDS: LACTATED RINGERS 1,000 ML 42 ML IV (10:08)
[2024-05-04 10:13] VITALS: BP 169/88; PULSE 75; RESP 16; TEMP 36.9; O2SAT 99
--- NOTE | 2024-05-04 10:59 | P.HP_ITS ---
History of Present Illness History of Present Illness Date Patient Seen: 05/04/24 Time Patient Seen: 10:59 Chief complaint: Screening Colonoscopy Narrative: Colon cancer screening. H/o polyps. [facility] Medical History Fractures Foot pain (2009) HPV (human papilloma virus) infection (2011) Chronic diarrhea Hyperlipidemia Hypertension (1999) GERD (gastroesophageal reflux disease) (2003) Abnormal Pap smear of cervix (2009) Chicken pox Measles Mumps Osteopenia Tinnitus (2012) Surgical History Anesthesia Status post wrist surgery (2001) Status post right foot surgery (1998) Status post hammer toe correction (2011) Status post tonsillectomy and adenoidectomy (~1956) S/P total abdominal hysterectomy and bilateral salpingo-oophorectomy (08/2008) Family History Brother Age: 66 S/P lobectomy of lung Lung cancer Smoker Father Hypertension CAD (coronary artery disease) Mother Age: 99 Dementia, old age Hypertension Grandfather No problems noted. Grandmother No problems noted. Grandfather No problems noted. Grandmother No problems noted. Social History marital status: household members: spouse Smoking Status: Former smoker alcohol intake: current substance use type: marijuana (ON OCCASION ) Meds Home Medications and Allergies Home Medications Medication Instructions Recorded Confirmed Type COENZYME Q10/VITAMIN E (CO-Q-10 1 cap PO Q DAY ##0 03/15/11 05/04/24 History 100mg) [FLAX OIL] 1,000 mg PO QDAY ##0 08/21/16 04/29/24 History omeprazole 20 mg capsule,delayed 20 mg PO QDAY #90 caps 09/05/20 05/04/24 Rx release calcium 600 mg capsule 1,200 mg PO Q OTHER DAY 01/16/21 05/04/24 History cholecalciferol (vitamin D3) 50 50 mcg PO DAILY 01/16/21 05/04/24 History mcg (2,000 unit) capsule (Vitamin D3) chlorthalidone 25 mg tablet 12.5 mg (1/2 x 25 mg) PO DAILY #90 04/11/22 05/04/24 Rx tabs lisinopril 40 mg tablet See Rx Instructions .Route 12/23/22 05/04/24 Rx .COMPLEX #90 tabs mecobalamin (vitamin B12) 5,000 5,000 mcg PO DAILY 04/29/24 05/04/24 History mcg chewable tablet Allergies Allergy/AdvReac Type Severity Reaction Status Date / Time No Known Drug Allergies Allergy Verified 05/04/24 10:11 Review of Systems Review of Systems ROS: Yes All systems reviewed with the patient and are negative except as otherwise documented Exam Vital Signs (past 8 hours): - 05/04/24 10:13 Temperature 98.4 F Pulse Rate 75 Respiratory Rate 16 Blood Pressure 169/88 H Pulse Oximetry 99 Oxygen Delivery Method Room Air Oxygen Delivery Method Room Air Const General: cooperative and healthy appearing Nutritional Appearance: thin HENMT Head: normal to inspection, normocephalic and atraumatic Eyes Sclera: sclerae normal Neck Neck: trachea midline and No JVD Resp Effort & Inspection: normal respiratory effort and able to speak in complete sentences Cardio Rate: regular rate Rhythm: regular rhythm GI Palpation: soft and No tender Skin General: atrophy Neuro General: patient alert, patient awake and patient oriented x3 Cognition: normal cognition Psych Appearance: grossly normal Affect: normal affect Judgment: judgment good Assessment & Plan Assessment & Plan narrative: H/o colon polyps Plan: colonoscopy with anesthesia Time-Based Coding :: [TOTAL MINUTES] spent with patient and on the chart (including review of chart, obtaining history, exam, reviewing outside data, placing orders, documenting exam and treatment plan, and counseling patient) on [DATE].
--- NOTE | 2024-05-04 11:18 | PM.OP.COLON ---
Operative Date/Time/Diagnoses Date of procedure: 05/04/24 Time of procedure: 11:18 Pre-op diagnosis: History of colon polyps Post-op diagnosis: same Procedure & Clinicians Study performed: Colonoscopy with anesthesia Same procedure as scheduled: Yes Indications: History of colon polyps Surgeon: Yulissa Montesinos Procedure Notes Procedure in detail: Preop diagnosis: History of colon polyps Postop diagnosis: Same Operative procedure: Colonoscopy with anesthesia Surgeon: Emily Montesinos MD Findings: Normal colonoscopy. Minimal diverticulosis. No polyps Procedure: Patient placed in a lateral position. Rectal exam performed showing normal tone no masses. Colonoscope inserted into the rectum and advanced to ileocecal valve with minimal difficulty. Insufflation extraction of the scope and the above findings. Retroflex was included in the rectum Impression: No polyps identified. Plan: Repeat colonoscopy 5 years, sooner if change in clinical condition Specimen(s): none sent Complications: none Post-procedure Recommendations: Colonoscopy in 5 years
[2024-05-04 11:20] VITALS: BP 153/71; PULSE 57; RESP 13; TEMP 36.6; O2SAT 100
[2024-05-04 11:25] VITALS: BP 148/66; PULSE 56; RESP 13; TEMP 36.3; O2SAT 100
[2024-05-04 11:31] VITALS: BP 125/63; PULSE 65; RESP 15; TEMP 36.3; O2SAT 100
== END 2024-05-04 11:48 | disposition home or self-care (01) ==
PROVIDERS: Family Provider Family Medicine; PCP Family Medicine; Referring Provider Surgery; Visit Provider Surgery
PROC: 0DJD8ZZ Inspection of Lower Intestinal Tract, Via Natural or Artificial Opening Endoscopic (ICD-10-PCS; CPT 45378; principal; 2024-05-04 10:45)
DX: Z12.11 Encounter for screening for malignant neoplasm of colon (principal); Z86.010 Personal history of colon polyps; K57.30 Diverticulosis of large intestine without perforation or abscess without bleeding
CPT/HCPCS: G0121; J2704